=== PATIENT | female | born 1935 | race Caucasian/White ===

== ENCOUNTER 2016-05-08 12:32 | Inpatient (IN) | payer OTHER, MEDICARE ==
[~2016-05-08] VITALS: Ht 157.5 cm; Wt 59.0 kg
[~2016-05-08 12:32] MED LIST: AMLODIPINE BESYL5 M1 PO; BACTRIM 400-801 EACH PO; COZAAR25 M1 PO; DIFLUCAN150 M1 PO; DUREZOL5 ML OD; ILEVRO1.7 ML OD; LEVEMIR100 UNIT/1 SC; LOPRESSOR 25MG25 MG PO; MACROBID 100 M100 MG PO; MECLIZINE HCL25 MG PO; NOVOLOG100 UNIT/2 SC; OMEPRAZOLE20 M2 PO; PREDNISONE10 M2 PO; PREDNISONE5 M1 PO; TAMSULOSIN HCL0.4 M1 PO; VENTOLIN HFA18 GM INH; VIGAMOX3 ML
--- NOTE | 2016-05-08 12:49 | NUR ---
80 Y/O FEMALE BIBA FROM HOME FOR EVAL OF L ANKLE PAIN/SWELLING X 3-4 DAYS. PT ARRIVES ALERT AND ORIENTED X 4, SPEAKING CLEARLY WITH NO DISTRESS NOTED. PT STATES SHE HAS A PHYSICAL THERAPIST COME TO HER HOME, ALONG WITH AIDS - ON THURSDAY, WAS WORKING WITH PT ON THE STAIRS AND "BANGED MY L ANKLE ON THE DOOR". PT DENIES FALLING. DENIES OTHER INJURIES. STATES SHE HAS A BAD R KNEE WELL AND "I WAS OVERCOMPENSATING". PT STATES SHE WAS SUPPOSED TO GET A R KNEE REPLACEMENT 15 YEARS AGO - WOULD LIKE LIKE XRAY WHILE HERE TODAY. HAS BEEN AMBULATING AT HOME WITH WALKER BUT STATES PAIN BECAME "24/10 LAST NIGHT". PT HAS PILLOW/AIR SPLINT IN PLACE ON ARRIVAL. UNABLE TO VISUALIZE ANKLE PT REQUESTING TO LEAVE SPLINT ON UNDER MD REECE. DECLINES OFFER OF MEDS UNTIL EVAL WELL.
--- NOTE | 2016-05-08 12:49 | ED UPPER/LOWER EXTREMITY COMPL ---
History of Present Illness General Chief Complaint: Foot or Ankle Injury Stated Complaint: LET ANKLE PAIN Source: patient Exam Limitations: no limitations Vital Signs & Intake/Output Vital Signs & Intake/Output Vital Signs Date Time Temp Pulse Resp B/P Pulse O2 O2 Flow FiO2 Ox Delivery Rate 05/10 0917 65 112/80 18 0917 65 112/80 05/10 0916 65 112/80 05/10 0802 98.4 65 18 112/80 95 Room Air 05/09 2339 98.6 63 18 103/80 96 Room Air 05/09 1527 98.1 57 18 100/58 97 Room Air ED Intake and Output 05/10 0000 05/09 1200 Intake Total 980 840 Output Total Balance 980 840 Intake, IV 600 Intake, Oral 980 240 Allergies Coded Allergies: Penicillins (Severe, BLEEDING - UNKNOWN PT DOESNT REMEMBER 10/10/15) sulfamethoxazole (From BACTRIM) (Severe, Thrombocytopenia 10/13/15) trimethoprim (From BACTRIM) (Severe, Thrombocytopenia 10/13/15) warfarin (Severe, EXCESSIVE BLEEDING 10/10/15) aspirin (BLEED 05/02/15) Reconcile Medications Losartan Potassium (Cozaar) 25 MG TABLET 1 TAB PO DAILY BP (Reported) Meclizine HCl 25 MG TABLET 1 TAB PO DAILY DIZZINESS (Reported) Metformin HCl 1,000 MG TABLET 1 TAB PO QAM DM (Reported) Metoprolol Tartrate 25 MG TABLET 1 TAB PO DAILY BP (Reported) Tamsulosin HCl 0.4 MG CAP.ER.24H 1 CAP PO DAILY URINE (Reported) Triage Note: 80 Triage Nurses Notes Reviewed? yes HPI: Patient presents for evaluation of a severe constant left ankle pain that began abruptly on Thursday when she hit the left ankle against the side of the stairs. Since then she has noted lateral ankle swelling as well. She is unable to ambulate at this time due to the pain. She states she lives on the second floor and this really taxes her right knee which has been chronically painful (she's been told that she needs a replacement). This has led to the current injury of her left ankle and foot. Past History Travel History Traveled to [place] past 21 day No Medical History Any Pertinent Medical History? 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 No Review of Systems Review of Systems Constitutional: Reports: no symptoms. EENTM: Reports: no symptoms. Respiratory: Reports: no symptoms. Cardiovascular: Reports: no symptoms. Gastrointestinal/Abdominal: Reports: no symptoms. Genitourinary: Reports: no symptoms. Musculoskeletal: Reports: see HPI. Skin: Reports: no symptoms. Neurological/Psychological: Reports: no symptoms. Hematologic/Endocrine: Reports: no symptoms. Immunological: Reports: no symptoms. All Other Systems: Reviewed and Negative Physical Exam Physical Exam General Appearance: see below Comments: Gen.: Well-nourished, well-developed, no acute respiratory distress. Head: Normocephalic, atraumatic. Eyes: Normal inspection bilaterally Ears: Normal inspection bilaterally Nose: Normal inspection, nasal cannula in place Throat/mouth : Moist mucosa Neck: Supple, full range of motion, no goiter Heart: Regular rate and rhythm Lungs: Quiet respirations Back: Normal range of motion Extremities: Left lower extremity: Tenderness of the lateral malleolus with mild soft tissue swelling. Tenderness over the distal metacarpals. No ecchymoses noted. The left foot is neurovascularly intact. The left knee exam is normal. Neurologic: Cranial nerves grossly intact, speech is clear Skin: warm and dry Psychiatric: Calm, cooperative, no apparent delusions or hallucinations Progress Differential Diagnosis: dislocation, fracture, sprain Plan of Care: Orders Procedure Date/time Status Therapeutic Activities 05/10 UNK Complete Therapeutic Exercise 05/10 UNK Complete Anticipated Discharge 05/10 UNK Active PHYSICIAN CONSULT 05/09 UNK Active Current Medications Sig/Sonya Start time Last Medication Dose Stop Time Status Admin Senna 187 MG AT BEDTIME 05/10 2200 AC (Senokot) Bisacodyl 10 MG ONCE PRN 05/10 1030 AC (Dulcolax Supp) 05/10 2300 Magnesium Hydroxide 30 ML AT BEDTIME PRN 05/10 1030 AC (Milk Of Magnesia) Acetaminophen 650 MG Q6P PRN 05/08 1914 AC (Tylenol) Tramadol HCl 25 MG Q6-PRN PRN 05/08 1914 AC (Ultram) Diagnostic Imaging: Discussed w/RAD: Radiology Read. Radiology Impression: PATIENT: DARRIN LARSEN PRESENT AGE: 80 PATIENT ACCOUNT NO: [id number] : 34 LOCATION: [facility] ORDERING PHYSICIAN: WEI ACUNA MD SERVICE DATE: 05/08/16 EXAM TYPE: RAD - XRY-ANKLE 3 OR MORE VIEWS L; XRY-FOOT COMPLETE, LEFT EXAMINATION: LEFT ANKLE 3 VIEWS LEFT FOOT 3 VIEWS CLINICAL INFORMATION: Left ankle injury 6 days ago COMPARISON: None. TECHNIQUE: 3 views left ankle 3 views left foot FINDINGS: Left ankle: There is moderate swelling around the ankle. The ankle mortise is intact. Alignment is anatomic. No joint effusion. No fracture. Left foot: Moderate soft tissue swelling around the ankle. Degenerative changes at the first TMT and MTP joints. No fracture. IMPRESSION: No fracture. DICTATED BY: BRODY RASCON MD DATE/TIME DICTATED:05/08/161412 MAINTENANCE MAN:JACKELYN DATE/TIME TRANSCRIBED:05/08/161412 CONFIDENTIAL, DO NOT COPY WITHOUT APPROPRIATE AUTHORIZATION. <Electronically signed in Other Vendor System> SIGNED BY: BRODY RASCON MD 05/08/16 1418 Comments: 05/08/2016 2:43:40 PM I have updated Janis on her test results. We will place an ankle brace and assure patient is at baseline ambulatory status (she typically ambulates with a walker). 05/08/2016 3:09:51 PM Janis was unable to ambulate steadily, case management and PT consultations have been ordered. Departure Departure Disposition: STILL A PATIENT Condition: Stable Clinical Impression Primary Impression: Gait instability Secondary Impressions: Arthritis of ankle, left, degenerative Qualifiers: Osteoarthritis type: unspecified Qualified Code: M19.072 - Primary osteoarthritis, left ankle and foot Left ankle sprain Qualifiers: Encounter type: initial encounter Involved ligament of ankle: unspecified ligament Qualified Code: S93.402A - Sprain of unspecified ligament of left ankle, initial encounter Referrals: SAMANTHA VILLAREAL,KISHAN Coyle (PCP/Family) Departure Forms: Customer Survey General Discharge Information Admission Note Spoke With: KATALINA ELIAS MD Documentation of Exam: Documentation of any treatments & extenuating circumstances including Concerns Regarding Discharge (functional status, medication knowledge or non-compliance, living conditions, etc.) that warrant an admission rather than observation: Patient is experiencing multifactorial gait instability secondary to chronic right knee degeneration requiring prosthesis and an acute left ankle sprain. She is unable to ambulate safely at this time and would be incapable of managing her ADLs. In addition she would have great difficulty in compliance with outpatient treatment. She would be at constant risk of falling with subsequent injury. I do not feel she is a good candidate for outpatient management at this time. I feel the patient now requires hospitalization, an ankle brace and pain management and physical therapy evaluation. The ankle should be iced and elevated. Orthopedic consultation should be considered. Given this patient's advanced age and medical comorbidities, she will likely require short-term rehabilitation. At present she will require a multiple day hospitalization for evaluation and treatment as outlined above.
--- NOTE | 2016-05-08 12:50 | NUR ---
DR ACUNA INTO EVAL
--- NOTE | 2016-05-08 13:18 | NUR ---
PT AWAITING RADIOLOGY WITH NO ADDITIONAL COMLPAINTS DECLINES PAIN MEDCATION AT THIS TIME
--- NOTE | 2016-05-08 13:23 | NUR ---
TAKEN TO RADIOLOGY VIA STRETCHER
--- NOTE | 2016-05-08 13:41 | NUR ---
BACK FROM RADIOLOGY
--- NOTE | 2016-05-08 14:18 | RADIOLOGY REPORT ---
EXAMINATION: LEFT ANKLE 3 VIEWS LEFT FOOT 3 VIEWS CLINICAL INFORMATION: Left ankle injury 6 days ago COMPARISON: None. TECHNIQUE: 3 views left ankle 3 views left foot FINDINGS: Left ankle: There is moderate swelling around the ankle. The ankle mortise is intact. Alignment is anatomic. No joint effusion. No fracture. Left foot: Moderate soft tissue swelling around the ankle. Degenerative changes at the first TMT and MTP joints. No fracture. IMPRESSION: No fracture.
--- NOTE | 2016-05-08 15:04 | NUR ---
AIR SPLINT PLACED TO L ANKLE PT ATTEMPTED TO AMBULATE WITH WALKER. ABLE TO STAND WITH ASSIST OF 2. UNABLE TO BEAR OWN WEIGHT OR TAKE ANY STEPS. ASSISTED BACK INTO BED. DR ACUNA INFORMED LUNCH ORDERED, OK WITH
--- NOTE | 2016-05-08 15:10 | NUR ---
AFTER LONGER CONVERSATION WITH PT, PT STATES SHE HAS AN AIDE FROM [id number] DAILY, "WHEN THEY LEAVE THEY GET ME IN BED AND I STAY THERE UNTIL THEY COME BACK. I AM INCONTINENT AND WEAR A BRIEF". PT STATES SHE IS UNABLE TO TRANSFER BY HERSELF OR AMBULATE. DR ACUNA AND CASE MANAGEMENT INFORMED OF ALL OF THE ABOVE
[2016-05-08] MEDS ORDERED: METOPROLOL TART25 M1 PO (15:32)
[2016-05-08] MEDS ORDERED: METFORMIN HCL1000 M1 PO (15:33)
--- NOTE | 2016-05-08 15:33 | NUR ---
PT CARE ASSUMED BY THIS RN AT THIS TIME. PT RESTING ON STRETCHER AT THIS TIME. OFFERS NO COMPLAINTS AT THIS TIME DINNER TRAY DELIVERED TO PT.
--- NOTE | 2016-05-08 16:04 | NUR ---
CASE MANAGEMENT TO BEDSIDE FOR EVAL.
--- NOTE | 2016-05-08 16:30 | NUR ---
Case mgmnt TSF: I went in and introduced myself to patient. I gave her our brochure and my card. Patient was trialed for ambulation by nursing and did very poorly. Patient uses a rolling walker at home. She has trouble with her right leg, and today came in because of her left ankle. Patient has an aide at home from 830--530pm, 7 days a week and then is alone once they settle her for the night. Patient is incontinent and wears a brief at night. Per patient she has 13 steps up to her house. Patient was just discharged from [facility] with physical therapy on 05/02/16. Per patient, she could have had services until 05/23, but they discharged her. Patient was here last year and was discharged to [place]. She would be open to going back to [place] if she indeed needs physical therapy. Physical therapy consult placed for tomorrow. CM continuing to follow.
[2016-05-08 17:03] LABS: ABSOLUTE BASOPHIL COUNT 0 /CUMM (0.0-0.2); ABSOLUTE EOSINOPHIL COUNT 0.2 /CUMM (0.0-0.7); ABSOLUTE GRANULOCYTE CT 5.7 /CUMM (1.4-6.5); ABSOLUTE LYMPH COUNT 1.6 /CUMM (1.2-3.4); ABSOLUTE MONOCYTE COUNT 0.3 /CUMM (0.10-0.60); BASOPHIL % 0.2 % (0.0-2.0); EOSINOPHIL % 2.9 % (0-5); GRANULOCYTE % 72.5 % (42.2-75.2); HEMATOCRIT 31.8 % (37-47); MEAN CORPUSCULAR HGB 29.5 PG (27.0-31.0); MEAN CORPUSCULAR HGB CONC 33.5 G/DL (33.0-37.0); MEAN PLATELET VOLUME 7.2 FL (7.4-10.4); PLATELET COUNT 193 /CUMM (130-400); RBC DISTRIBUTION WIDTH 15.6 % (11.5-14.5); RED BLOOD CELL CT 3.61 /CUMM (4.20-5.40); WHITE BLOOD CELL COUNT 7.8 /CUMM (4.8-10.8)
--- NOTE | 2016-05-08 18:15 | History & Physical ---
EBONY VILLAREAL,[facility] 05/08/16 181: General Information and HPI MD Statement: I have seen and personally examined DARRIN CARTER and documented this H&P. The patient is a 80 year old F who presented with a patient stated chief complaint of left ankle pain and swelling. 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 Patient bumped her left ankle against the side rail of the stairs and since then has had swelling and pain on the lateral side of her ankle which makes it difficult to ambulate. This has been taxing on her right knee which is painful at baseline 2/2 osteoarthritis, especially since she lives on the second floor. Of note, patient has been in and out of rehabilitation for the past few months and was almost bedbound at some time, eventually regaining functionality with physical therapy. She lives at home and has helpers that take care of her from 8 :30 AM to 5:30 PM 7 days per week. Allergies/Medications Allergies: Coded Allergies: Penicillins (Severe, BLEEDING - UNKNOWN PT DOESNT REMEMBER 10/10/15) sulfamethoxazole (From BACTRIM) (Severe, Thrombocytopenia 10/13/15) trimethoprim (From BACTRIM) (Severe, Thrombocytopenia 10/13/15) warfarin (Severe, EXCESSIVE BLEEDING 10/10/15) aspirin (BLEED 05/02/15) Home Med list Losartan Potassium (Cozaar) 25 MG TABLET 1 TAB PO DAILY BP (Reported) Meclizine HCl 25 MG TABLET 1 TAB PO DAILY DIZZINESS (Reported) Metformin HCl 1,000 MG TABLET 1 TAB PO QAM DM (Reported) Metoprolol Tartrate 25 MG TABLET 1 TAB PO DAILY BP (Reported) Tamsulosin HCl 0.4 MG CAP.ER.24H 1 CAP PO DAILY URINE (Reported) Past History Travel History Traveled to [place] past 21 day No Medical History Neurological: vertigo EENT: NONE Cardiovascular: hypertension Respiratory: asthma, COPD Gastrointestinal: lower GI bleed, umbilical hernia Hepatic: NONE Renal: nephrolithiasis, KIDNEY STONE chronic right UPJ obstruction Musculoskeletal: osteoarthritis Psychiatric: NONE Blood Disorders: DVT, ITP Cancer(s): thyroid cancer 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 self Services at Home: Home Health Aide (8:30 AM-5:30 PM 7 days/week) Primary Language: Samoan Review of Systems Review of Systems Constitutional: Denies: chills, fever. EENTM: Reports: no symptoms. Cardiovascular: Reports: no symptoms. Respiratory: Reports: no symptoms. GI: Reports: no symptoms. Genitourinary: Reports: no symptoms. Musculoskeletal: Reports: no symptoms. Skin: Reports: no symptoms. Neurological/Psychological: Denies: numbness, weakness. Hematologic/Endocrine: Reports: no symptoms. Immunologic/Allergic: Reports: no symptoms. All Other Systems: Reviewed and Negative Exam & Diagnostic Data Last 24 Hrs of Vital Signs/I&O Vital Signs Date Time Temp Pulse Resp B/P Pulse O2 O2 Flow FiO2 Ox Delivery Rate 05/08 2313 98.5 61 20 112/62 96 Room Air 05/08 2127 99.0 63 18 122/59 95 Room Air 05/08 1820 97.2 66 18 102/60 98 Room Air 05/08 1625 97.0 64 16 126/79 94 Room Air 05/08 1442 97.0 66 18 124/59 96 Room Air 05/08 1338 97.0 70 18 133/59 96 Room Air 05/08 1251 95 Room Air 05/08 1236 96.7 64 16 107/72 97 Room Air Intake & Output 05/09 0800 05/09 0000 05/08 1600 Intake Total Output Total Balance Patient 58.967 kg 61.235 kg Weight Physical Exam General Appearance Alert, Oriented X3, No Acute Distress HEENT Atraumatic, PERRLA, Mucous Membr. moist/pink Neck Supple Cardiovascular Regular Rate, Normal S1, Normal S2, No Murmurs, Gallops, Rubs Lungs Clear to Auscultation Abdomen Soft, No Tenderness, Positive Bowel Sounds Neurological No Gross Focal Deficits Noted Extremities Ankle Brace In Place on Left Foot, with Edema and Tenderness to Palpation Around the Lateral Malleolus Last 24 Hrs of Labs/Jae: Laboratory Tests 05/08/164: Urine Color YEL, Urine Clarity TURBD H, Urine pH 6.0, Ur Specific [place] 1.020 , Urine Protein 30 H, Urine Ketones NEG, Urine Nitrite POS H, Urine Bilirubin NEG, Urine Urobilinogen 0.2, Ur Leukocyte Esterase LARGE H, Ur Microscopic SEDIMENT EXAMINED, Urine WBC PACKD H, Micro UA Comment MORE INFO: H, Urine Hemoglobin MOD H, Urine Glucose NEG 05/08/16 1652: Anion Gap 13, Estimated GFR 48 L, BUN/Creatinine Ratio 21.8, Glucose 99, Calcium 9.6, CBC w Diff NO MAN DIFF REQ, RBC 3.61 L, MCV 88.0, MCH 29.5, RDW 15.6 H, MPV 7.2 L, Gran % 72.5, Lymphocytes % 20.2 L, Monocytes % 4.2, Eosinophils % 2.9, Basophils % 0.2, Absolute Granulocytes 5.7, Absolute Lymphocytes 1.6, Absolute Monocytes 0.3, Absolute Eosinophils 0.2, Absolute Basophils 0, PUBS MCHC 33.5 Diagnostic Data Other Results Left Ankle XR: There is moderate swelling around the ankle. The ankle mortise is intact. Alignment is anatomic. No joint effusion. No fracture. Left Foot XR: Moderate soft tissue swelling around the ankle. Degenerative changes at the first TMT and MTP joints. No fracture. Assessment/Plan Assessment: Ms. Carter is a 80 y/o with PMHx of HTN, osteoarthritis and RLE DVT who presents with left ankle pain and swelling x 1 week following injury. #Left foot injury: Left foot and ankle XR significant for moderate soft tissue swelling but no evidence of fracture. * BLE Doppler US ordered to evaluate for DVT. * PT evaluation/therapy. * Tramadol 25 mg PO Q6H PRN for severe pain (scale 7-10) and Tylenol 650 mg PO Q6H PRN for mild pain (scale 1-3). #HTN: * Continue prior to admission metoprolol 25 mg PO daily and losartan 25 mg PO daily. 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 Currently off steroids. * Continue prior to admission metformin 1000 mg PO QAM. #Chronic UPJ obstruction: With recurrent UTIs. S/p cystoscopy and stent placement. * Continue tamsulosin 0.4 mg PO daily. #BPPV: * Continue prior to admission meclizine 25 mg PO daily. Diet: Consistent Carbohydrate 3 DVT PPx: Lovenox and ALPs CODE: FULL As Ranked By This Provider Problem List: 1. Osteoarthritis 2. HTN (hypertension) 3. Left ankle sprain Qualifiers Encounter type: initial encounter Involved ligament of ankle: unspecified ligament Qualified Code: S93.402A - Sprain of unspecified ligament of left ankle , initial encounter Core Measures/Miscellaneous Acute Coronary Syndrome ACS Diagnosis: No Cerebrovascular Accident CVA/TIA Diagnosis: No Congestive Heart Failure CHF Diagnosis: No Venous Thromboembolism VTE Risk Factors: Acute medical illness, Age > 40, Immobility, paresis, Previous VTE, Trauma major or lower ext No Mech VTE prophylaxis d/t: No contraindications No VTE Pharm Prophylaxis d/t: No contraindications VTE Diagnosis: No VTE Type: NONE VTE Confirmed by (Test): NONE Severe Sepsis Severe Sepsis Present: No Septic Shock Septic Shock Present: No Miscellaneous Documentation Attending Case Discussed With: Katalina Dee MD Primary Care Physician: Kishan Singh MD 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 Level of Patient Care: General Medicine SUSANA OSORIO 05/08/16 1907: Core Measures/Miscellaneous Miscellaneous Documentation Attending Case Discussed With: KATALINA DEE MD Primary Care Physician: KISHAN SINGH MD 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 Tesfaye, recurrent UTIs, history of RLE DVT not on any anticoagulation because of history of lower GI bleed, thrombocytopenia requiring platelet transfusion, prednisone and IVIG previously and history of thyroid cancer status post thyroidectomy, lower GI bleed due to angioectasia of descending colon and chronic anemia presented to ER with complaint of left ankle pain and swelling for last 3-4 days. According to patient she was working with physical therapy and bumped her left foot a week ago. Last night she was in so much pain and was not able to walk. Patient has an aide at home from 8:30 to 5: 30 PM 7 days a week and then she is alone and states that her for the night. She denies any fever, chills, weakness or numbness of her legs/feet. Other review of systems negative. Vitals on admission: Temperature 96.7, pulse 64, respiratory rate 16, blood pressure 107/72 and oxygen saturation 97% on room air Positive physical exam findings: Left foot swelling and tenderness around the lateral malleolus. No obvious bruising or redness. Sensations are intact. Restricted range of motion because of severe pain. Patient is wearing ankle brace. Pertinent labs: H&H 10.6/31.8, sodium 136, BUN 24, creatinine 1.1 Left foot x-ray showed moderate soft tissue swelling around ankle. Degenerative changes. No fracture Assessment and plan She is very pleasant 80-year-old woman with above-mentioned past medical history is going to be admitted on general medicine floor for left foot pain management. We will keep left foot elevated. Physical therapy evaluation and treatment. Patient might need long-term placement. We will continue all her home medications. Pain management with Tylenol and tramadol. She is full code. JIMMY RUBIO 05/09/16 0550: Attending MD Review Statement Attending Statement Attending MD Statement: examined this patient, discuss w/resident/PA/JAVA DEVELOPER ARCHITECT, agreed w/resident/PA/JAVA DEVELOPER ARCHITECT, reviewed EMR data (avail), reviewed images, amended to note Attending Assessment/Plan: CC: left ankle pain PMH: HTN, chronic UPJ obstruction with recurrent UTI, osteoarthritis, chronic right knee pain, right lower extremity DVT not on anticoagulation secondary to GI bleed. DM secondary to prednisone currently on metformin, asthma, vertigo Patient has been in and out of rehabilitation several times, recently discharged from rehabilitation on December 2015 , was almost bedbound, eventually regained functionality and started working with physical therapy , has been more active with physical therapy since last seen weeks, during this time she hurt her left ankle 15 days back, which improved then again 7 days back, pain and swelling at the left ankle gradually worsened so she came to ER for evaluation. She lives alone , with helpers coming during daytime, alone after 5 PM. With her bad right knee pain she was mostly putting pressure on the left leg and now it's insured she is unable to ambulate. Vitals: Unremarkable physical exam: A O 3,, neck supple, no JVD, no lymphadenopathy, no focal neurological deficit, mucosa moist, CVS: S1-S2, RRR. RS: Clear to auscultate bilaterally. Abdomen: Soft, NT, bowel sounds present, reducible anterior wall hernia. Deformed right knee, left ankle swollen, tender Labs: Hemoglobin 10.6, bicarbonate 20 otherwise unremarkable. UA positive for nitrites and leukocyte esterase. X-ray left foot and ankle: No fractures A and P #1 left ankle pain: No evident fracture, joint swollen, tender, no evidence of infection, no prosthesis. Probably ligamental injury, a shunt is in severe pain and unable to ambulate. Continue anti-inflammatory and pain medications as necessary, OT PT evaluation in a.m. for ambulation Patient has history of DVT in the past, has pins less ambulating with current injury, obtain DVT Doppler left lower extremity. X-ray right knee, ? Evaluation for surgery outpatient #2 continue all her home medications from morning.
--- NOTE | 2016-05-08 19:04 | NUR ---
HOUSE STAFF TO BEDSIDE FOR EVAL.
--- NOTE | 2016-05-08 19:59 | NUR ---
PT TO ROOM [id number]
--- NOTE | 2016-05-08 20:01 | NUR ---
PT TO US VIA STRETCHER AT THIS TIME.
--- NOTE | 2016-05-08 20:26 | NUR ---
REPORT GIVEN TO JUNIOR RODRIGUEZ. WILL CALL WHEN PT IS READY FOR TRANSFER.
--- NOTE | 2016-05-08 20:28 | NUR ---
PER RN BED IS NOT READY, WILL CALL WHEN CLEAN.
--- NOTE | 2016-05-08 21:31 | NUR ---
PER ELLEN FROM 2N, ROOM IS CLEAN AND READY AND PT MAY COME UP
[2016-05-08 23:13] VITALS: BP 112/62
--- NOTE | 2016-05-09 02:39 | NUR ---
NURSE NOTE: PT ARRIVED TO FLOOR AT 2155, PT IS AAOX3. COMPLAINING OF SEVERE PAIN, BUT REFUSES ALL PAIN MEDICATION. IVF STARTED NS @75. FALL PX IN PLACE, ORIENTED TO ROOM. CALL ACUNA IN REACH, BED LOWEST POSITION. CAME FROM ED VIA TRANSPORT, REPORT RECEIVED FROM NORA IN ED. AIR CAST TO PT L ANKLE. WILL CONTINOR TO MONITOR PATIENT.
[2016-05-09 06:32] VITALS: BP 110/52
--- NOTE | 2016-05-09 07:00 | PN- Housestaff ---
Subjective Follow-up For: Left ankle and foot injury Subjective: No acute events overnight. She continues to have pain in her left foot/ankle and right knee but is not interested in any pain medications as she is used to bearing the pain. Review of Systems Constitutional: Reports: see HPI. Objective Last 24 Hrs of Vital Signs/I&O Vital Signs Date Time Temp Pulse Resp B/P Pulse O2 O2 Flow FiO2 Ox Delivery Rate 05/09 1527 98.1 57 18 100/58 97 Room Air 05/09 1411 Room Air 05/09 1132 110/52 05/09 1132 110/52 05/09 1131 110/52 05/09 0632 98.6 60 18 110/52 93 Room Air 05/08 2313 98.5 61 20 112/62 96 Room Air Intake & Output 05/09 1600 05/09 0800 05/09 0000 Intake Total 500 840 315 Output Total Balance 500 840 315 Intake, IV 600 75 Intake, Oral 500 240 240 Patient 58.967 kg Weight Physical Exam General Appearance: Alert, Oriented X3, No Acute Distress HEENT: Atraumatic, Mucous Membr. moist/pink Neck: Supple Cardiovascular: Regular Rate, Normal S1, Normal S2 Lungs: Clear to Auscultation Abdomen: Soft, No Tenderness, Positive Bowel Sounds Extremities: Ankle Brace In Place on Left Foot, Left Ankle Swollen Current Medications: Current Medications Sig/Sonya Start time Last Medication Dose Route Stop Time Status Admin Acetaminophen 650 MG Q6P PRN 05/08 1914 AC PO Enoxaparin Sodium 30 MG DAILY 05/09 1000 DC 05/09 SC 1136 Losartan Potassium 25 MG DAILY 05/09 1000 AC 05/09 PO 1132 Meclizine HCl 25 MG DAILY 05/09 1000 AC 05/09 PO 1133 Metformin HCl 1,000 MG QAM 05/09 1000 CAN PO Metoprolol Tartrate 25 MG DAILY 05/09 1000 AC 05/09 PO 1131 Patient Medication 1 ED .STK-MED ONE 05/09 1400 DC Teaching ED 05/09 1401 Sodium Chloride 1,000 ML Q13H 05/08 1914 DC 05/08 IV 05/09 0814 2333 Tamsulosin HCl 0.4 MG DAILY 05/09 1000 AC 05/09 PO 1132 Tramadol HCl 25 MG Q6-PRN PRN 05/08 1914 AC PO Last 24 Hrs of Lab/Jae Results Last 24 Hrs of Labs/Mics: Laboratory Tests 05/09/16 0705: Anion Gap 9, Estimated GFR 53 L, BUN/Creatinine Ratio 24.0 Orders Radiology Findings: R KNEE XR: Tricompartmental osteoarthritis, most severely affecting the medial compartment. BLE DOPPLER US: Normal triplex scan without evidence of deep venous thrombosis involving the bilateral lower extremities. Assessment/Plan Assessment: 80 y/o with PMHx of HTN, osteoarthritis and RLE DVT who presents with left ankle pain and swelling x 1 week following injury. #Left foot injury: Left foot and ankle XR significant for moderate soft tissue swelling but no evidence of fracture. Ankle brace in place on left foot. Pain well-controlled. * Continue to work with PT. * Tramadol 25 mg PO Q6H PRN for severe pain (scale 7-10) and Tylenol 650 mg PO Q6H PRN for mild pain (scale 1-3). * Needs placement. #Right knee osteoarthritis: Right knee XR with severe osteoarthritis. * Orthopedic surgeon Dr. Gleason consulted for possible right knee injections. Recommended to give patient referral to follow up as outpatient. #History of ITP: On previous admission in September 2015. Has resolved, platelets were WNL on admission. * Discontinue Lovenox especially since BLE Doppler US with no evidence of DVT. #HTN: * Continue prior to admission metoprolol 25 mg PO daily and losartan 25 mg PO daily. 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 Currently off steroids. * Continue prior to admission metformin 1000 mg PO QAM. #Chronic UPJ obstruction: With recurrent UTIs. S/p cystoscopy and stent placement. * Continue tamsulosin 0.4 mg PO daily. #BPPV: * Continue prior to admission meclizine 25 mg PO daily. Diet: Consistent Carbohydrate 3 DVT PPx: ALPs CODE: FULL Problem List: 1. Osteoarthritis of right knee 2. Left ankle sprain 3. Sprain of left foot 4. HTN (hypertension) 5. Osteoarthritis 6. History of ITP 7. BPPV Pain Ratin Pain Location: Left ankle/foot and right knee Pain Goal: Pain 4 or less Pain Plan: Tramadol 25 mg PO Q6H PRN for severe pain (scale 7-10) Tylenol 650 mg PO Q6H PRN for mild pain (scale 1-3) Tomorrow's Labs & Rationales: N/A Discharge Plan Discharge Disposition: STR/NH Anticipated Discharge (Day): two days
--- NOTE | 2016-05-09 07:07 | ULTRASOUND REPORT ---
EXAMINATION: US TRIPLEX LOWER EXTREMITY, BILATERAL CLINICAL INFORMATION: This is an 80-year-old female with bilateral lower extremity swelling and pain. The patient is immobile. Possible deep vein thrombosis. Trauma to the ankle during physical therapy 6 days ago. Swelling and pain. COMPARISON: Comparison is made to a previous study dated 06/30/2012 which was normal. TECHNIQUE: Color-flow triplex imaging with spectral analysis and compression Doppler were performed on the bilateral lower extremities. FINDINGS: Respiratory variation, normal compression and augmented flow are noted throughout the bilateral lower extremities. The visualized common femoral vein, superficial femoral vein, profunda femoral vein, popliteal vein and midcalf peroneal and posterior tibial venous segments show no evidence of deep venous thrombosis. There is no Turk's cyst. IMPRESSION: Normal triplex scan without evidence of deep venous thrombosis involving the bilateral lower extremities.
--- NOTE | 2016-05-09 11:04 | RADIOLOGY REPORT ---
EXAMINATION: XR KNEE, RIGHT CLINICAL INFORMATION: Increasing pain in right knee. COMPARISON: None TECHNIQUE: Four views of the right knee were obtained without weightbearing. FINDINGS: Small suprapatellar joint effusion. There is osteophyte formation at the moderately degenerated patellofemoral compartment. At the medial compartment, there is severe loss of joint space with remodeling and flattening of the articular surface of the femoral condyle, subarticular sclerosis and exuberant osteophyte formation. Marginal osteophytes are present at the lateral compartment. Several clustered intra-articular ossific bodies are seen within the anterior knee deep to Hoffa's fat pad, largest in this area measuring up to 0.8 cm. No acute fractures within the degenerated knee. IMPRESSION: Tricompartmental osteoarthritis, most severely affecting the medial compartment.
--- NOTE | 2016-05-09 13:08 | PN- Att Addend ---
Attending Addendum Attending Brief Note Patient seen and examined, feeling slightly better today. Currently denies any pain but says that as well as she is not moving she does not have any pain. Vital Signs Date Time Temp Pulse Resp B/P Pulse O2 O2 Flow FiO2 Ox Delivery Rate 05/09 1132 110/52 05/09 1132 110/52 05/09 1131 110/52 05/09 0632 98.6 60 18 110/52 93 Room Air 05/08 2313 98.5 61 20 112/62 96 Room Air 05/08 2127 99.0 63 18 122/59 95 Room Air 05/08 1820 97.2 66 18 102/60 98 Room Air 05/08 1625 97.0 64 16 126/79 94 Room Air 05/08 1442 97.0 66 18 124/59 96 Room Air 05/08 1338 97.0 70 18 133/59 96 Room Air on exam aox3, nad. cv; s1,s2, rrr resp; clear abd; soft, nt, bs+ ext; left ankle/foot has a brace on. Laboratory Tests 05/09 05/08 0705 2104 Chemistry Sodium (137 - 145 mmol/L) 135 L Potassium (3.5 - 5.1 mmol/L) 4.6 Chloride (98 - 107 mmol/L) 102 Carbon Dioxide (22 - 30 mmol/L) 24 Anion Gap (5 - 16) 9 BUN (7 - 17 mg/dL) 24 H Creatinine (0.5 - 1.0 mg/dL) 1.0 Estimated GFR (>60 ml/min) 53 L BUN/Creatinine Ratio (7 - 25 %) 24.0 Urines Urine Color (YEL,AMB,STR) YEL Urine Clarity (CLEAR) TURBD H Urine pH (5.0 - 8.0) 6.0 Ur Specific [place] (1.001 - 1.035) 1.020 Urine Protein (NEG,<30 MG/DL) 30 H Urine Ketones (NEG) NEG Urine Nitrite (NEG) POS H Urine Bilirubin (NEG) NEG Urine Urobilinogen (0.1 - 1.0 EU/dl) 0.2 Ur Leukocyte Esterase (NEG) LARGE H Ur Microscopic SEDIMENT EXAMINED Urine WBC (0 - 2 /HPF) PACKD H Micro UA Comment MORE INFO: H Urine Hemoglobin (NEG) MOD H Urine Glucose (N MG/DL) NEG 05/08 1652 Chemistry Sodium (137 - 145 mmol/L) 136 L Potassium (3.5 - 5.1 mmol/L) 4.8 Chloride (98 - 107 mmol/L) 102 Carbon Dioxide (22 - 30 mmol/L) 20 L Anion Gap (5 - 16) 13 BUN (7 - 17 mg/dL) 24 H Creatinine (0.5 - 1.0 mg/dL) 1.1 H Estimated GFR (>60 ml/min) 48 L BUN/Creatinine Ratio (7 - 25 %) 21.8 Glucose (65 - 99 mg/dL) 99 Calcium (8.4 - 10.2 mg/dL) 9.6 Hematology CBC w Diff NO MAN DIFF REQ WBC (4.8 - 10.8 /CUMM) 7.8 RBC (4.20 - 5.40 /CUMM) 3.61 L Hgb (12.0 - 16.0 G/DL) 10.6 L Hct (37 - 47 %) 31.8 L MCV (81.0 - 99.0 FL) 88.0 MCH (27.0 - 31.0 PG) 29.5 RDW (11.5 - 14.5 %) 15.6 H Plt Count (130 - 400 /CUMM) 193 MPV (7.4 - 10.4 FL) 7.2 L Gran % (42.2 - 75.2 %) 72.5 Lymphocytes % (20.5 - 51.1 %) 20.2 L Monocytes % (1.7 - 9.3 %) 4.2 Eosinophils % (0 - 5 %) 2.9 Basophils % (0.0 - 2.0 %) 0.2 Absolute Granulocytes (1.4 - 6.5 /CUMM) 5.7 Absolute Lymphocytes (1.2 - 3.4 /CUMM) 1.6 Absolute Monocytes (0.10 - 0.60 /CUMM) 0.3 Absolute Eosinophils (0.0 - 0.7 /CUMM) 0.2 Absolute Basophils (0.0 - 0.2 /CUMM) 0 PUBS MCHC (33.0 - 37.0 G/DL) 33.5 lower ext doppler us: Neg for DVT. right knee xray: severe OA. 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 Imaging studies are negative for any fracture. Right knee x-ray shows severe osteoarthritis. Patient has a brace on. Please consult orthopedic. She is interested to know if she is a candidate for right knee injection. She is very concerned about the blood thinner with a history of ITP. I discontinued Lovenox especially due to the fact that lower extremity Dopplers of both lower extremities is negative for DVT. Current pain management is adequate. Patient to be seen by physical therapy. She will likely need placement. DVT Px; ALPS.
--- NOTE | 2016-05-09 13:45 | Patient Discharge Instructions ---
Discharge Instructions General Discharge Information You were seen/treated for: Left ankle pain and swelling Special Instructions: 1. Please follow-up with your primary care provider next week after discharge 2. Please follow-up with your orthopedic next week after discharge Diet Recommended Diet: Diabetic Activity Activity Limited to: Walking with Assistance Acute Coronary Syndrome Inclusion Criteria At DC or during hospital stay patient has or had the following: ACS DIAGNOSIS No Discharge Core Measures Meds if any: Prescribed or Continued at Discharge Meds if any: NOT Prescribed or Continued at Discharge Congestive Heart Failure Inclusion Criteria At DC or during hospital stay patient has or had the following: CHF DIAGNOSIS No Discharge Core Measures Meds if any: Prescribed or Continued at Discharge Meds if any: NOT Prescribed or Continued at Discharge Cerebrovascular accident Inclusion Criteria At DC or during hospital stay patient has or had the following: CVA/TIA Diagnosis No Discharge Core Measures Meds if any: Prescribed or Continued at Discharge Meds if any: NOT Prescribed or Continued at Discharge Venous thromboembolism Inclusion Criteria VTE Diagnosis No VTE Type NONE VTE Confirmed by (Test) NONE Discharge Core Measures - Per Current guidelines, there needs to be overlap - treatment for the first 5 days of Warfarin therapy. - If discharged on Warfarin prior to 5 days of - overlap therapy, the patient will need to be - assessed for post discharge needs including - *Post discharge parental anticoagulation - *Warfarin and/or parental anticoagulation education - *Follow up date to check INR post discharge At least 5 days overlap therapy as Inpatient No Meds if any: Prescribed or Continued at Discharge Note: Overlap Therapy is Warfarin and Anticoagulant Meds if any: NOT Prescribed or Continued at Discharge
--- NOTE | 2016-05-09 13:57 | Discharge Summary ---
Visit Information Visit Dates Admission Date: 05/08/16 Discharge Date: 05/11/2016 Hospital Course Course Attending Physician: KATALINA ELIAS MD Primary Care Physician: KISHAN SINGH MD Hospital Course: 80-year-old woman with past medical history of hypertension, BPPV, osteoarthritis, asthma, history of thrombocytopenia, chronic right UPJ obstruction with nonobstructing renal stone status post cystoscopy and stent placement by Dr. 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 According to patient she was working with physical therapy and bumped her left foot a week ago. Night prior to admission she was in so much pain and was not able to walk. Patient had an aide at home from 8:30 to 5:30 PM 7 days a week and then she was alone for the night. She denied any fever, chills, weakness or numbness of her legs/feet. Other review of systems was negative. Vitals on admission: Temperature 96.7, pulse 64, respiratory rate 16, blood pressure 107/72 and oxygen saturation 97% on room air Positive physical exam findings: Left foot swelling and tenderness around the lateral malleolus. No obvious bruising or redness. Sensations are intact. Restricted range of motion because of severe pain. Patient was wearing ankle brace. Pertinent labs: H&H 10.6/31.8, sodium 136, BUN 24, creatinine 1.1 Left foot x-ray showed moderate soft tissue swelling around ankle. Degenerative changes. No fracture. Doppler venous ultrasound of bilateral lower extremity did not show any evidence of DVT. Safety extremity was done that showed severe osteoarthritis. Hospital course Patient was admitted on general medicine floor as she needed assistance for ambulation and she was not a safe discharge home. All her home medications were continued. She was seen by physical therapy and they recommended STR upon discharge to increase strength/endurance and return to baseline. She remained hemodynamically stable while in hospital. Her pain was managed with Tylenol and tramadol. Complications: no Allergies: Coded Allergies: Penicillins (Severe, BLEEDING - UNKNOWN PT DOESNT REMEMBER 10/10/15) sulfamethoxazole (From BACTRIM) (Severe, Thrombocytopenia 10/13/15) trimethoprim (From BACTRIM) (Severe, Thrombocytopenia 10/13/15) warfarin (Severe, EXCESSIVE BLEEDING 10/10/15) aspirin (BLEED 05/02/15) Disposition Summary Disposition Principal Diagnosis: Left ankle sprain Additional Diagnosis: Physical deconditioning and generalized weakness Discharge Disposition: STR Discharge Instructions General Discharge Information Code Status: Full Code Patient's Diet: Diabetic diet Patient's Activity: With assistance Follow-Up Instructions/Appts: 1. Please follow-up with your primary care provider next week after discharge 2. Please follow-up with your orthopedic next week after discharge Medications at Discharge Discharge Medications: Continue taking these medications: Tamsulosin HCl (Tamsulosin HCl) 0.4 MG CAP.ER.24H 1 Capsule ORAL DAILY Days = 30 Comments: Last Taken: 05/11/16 Time: 0900 AM Losartan Potassium (Cozaar) 25 MG TABLET 1 Tablet ORAL DAILY Comments: Last Taken: 05/11/16 Time: 0900 AM Meclizine HCl (Meclizine HCl) 25 MG TABLET 1 Tablet ORAL DAILY Comments: Last Taken: 05/11/16 Time: 0900 AM Metoprolol Tartrate (Metoprolol Tartrate) 25 MG TABLET 1 Tablet ORAL DAILY Qty = 30 Comments: Last Taken: 05/11/16 Time: 0900 AM Metformin HCl (Metformin HCl) 1,000 MG TABLET 1 Tablet ORAL Every Morning Qty = 60 Comments: NOT GIVEN IN HOSPITAL Start taking the following new medications: Acetaminophen (Tylenol) 325 MG TABLET 650 Milligram ORAL EVERY SIX HOURS NEEDED as needed for PAIN SCALE 1-3 ( MILD) Qty = 30 No Refills Copies To: SAMANTHA VILLAREAL,KISHAN Coyle Attending Review Statement Documenting Attending: CATHY BELCHER MD Other Findings: The patient was seen and discussed with resident. Agree with the plan of care upon discharge. Discharging physicialn is Dr. Belcher.
[2016-05-09 15:27] VITALS: BP 100/58
[2016-05-09] MEDS ORDERED: TYLENOL325 M1 PO (15:59)
[2016-05-09 23:39] VITALS: BP 103/80
--- NOTE | 2016-05-10 07:24 | PN- Housestaff ---
See Addendum Subjective Follow-up For: Left ankle and foot injury Subjective: Patient by looks relaxed and comfortable. She reports left ankle pain however she denies the need for pain medication. Patient reported right knee pain caused by osteoarthritis, she was told that she will be given intra-articular steroid injection. Patient doesn't have any other current complaints. Review of Systems Constitutional: Reports: no symptoms. Objective Last 24 Hrs of Vital Signs/I&O Vital Signs Date Time Temp Pulse Resp B/P Pulse O2 O2 Flow FiO2 Ox Delivery Rate 05/10 1441 97.1 62 18 102/60 97 Room Air 05/10 0917 65 112/80 05/10 0917 65 112/80 05/10 0916 65 112/80 05/10 0802 98.4 65 18 112/80 95 Room Air 05/09 2339 98.6 63 18 103/80 96 Room Air Intake & Output 05/10 1600 05/10 0800 05/10 0000 Intake Total 1000 240 480 Output Total Balance 1000 240 480 Intake, Oral 1000 240 480 Physical Exam General Appearance: Alert, Oriented X3, Cooperative, No Acute Distress Skin: No Rashes HEENT: Atraumatic, PERRLA, EOMI, Mucous Membr. moist/pink Cardiovascular: Regular Rate, Normal S1, Normal S2, No Murmurs Lungs: Clear to Auscultation Abdomen: Soft, No Tenderness Neurological: Normal Speech Extremities: No Edema, decrease right knee range of motion Current Medications: Current Medications Sig/Sonya Start time Last Medication Dose Route Stop Time Status Admin Acetaminophen 650 MG Q6P PRN 05/08 1914 AC PO Bisacodyl 10 MG ONCE PRN 05/10 1030 AC ID 05/10 2300 Losartan Potassium 25 MG DAILY 05/09 1000 AC 05/10 PO 0917 Magnesium Hydroxide 30 ML AT BEDTIME PRN 05/10 1030 AC PO Meclizine HCl 25 MG DAILY 05/09 1000 AC 05/10 PO 0917 Metoprolol Tartrate 25 MG DAILY 05/09 1000 AC 05/10 PO 0916 Polyethylene Glycol 17 GM DAILY 05/10 1016 AC 05/10 PO 1305 Senna 187 MG AT BEDTIME 05/10 2200 AC PO Tamsulosin HCl 0.4 MG DAILY 05/09 1000 AC 05/10 PO 0917 Tramadol HCl 25 MG Q6-PRN PRN 03/16 1915 AC PO Assessment/Plan Assessment: 80 y/o with PMHx of HTN, osteoarthritis and RLE DVT who presents with left ankle pain and swelling x 1 week following injury. #Left foot injury: Left foot and ankle XR significant for moderate soft tissue swelling but no evidence of fracture. Ankle brace in place on left foot. Pain well-controlled. * Continue to work with PT. * Tramadol 25 mg PO Q6H PRN for severe pain (scale 7-10) and Tylenol 650 mg PO Q6H PRN for mild pain (scale 1-3). * Needs placement. #Right knee osteoarthritis: Right knee XR with severe osteoarthritis. * Orthopedic surgeon Dr. Gleason consulted for possible right knee injections. Recommended to give patient referral to follow up as outpatient. However patient has the impression that she will get the injection while still on the hospital, we contacted orthopedic surgery and they wouldn't be able to do it as an inpatient. #History of ITP: On previous admission in September 2015. Has resolved, platelets were WNL on admission. * Discontinue Lovenox especially since BLE Doppler US with no evidence of DVT. #HTN: * Continue prior to admission metoprolol 25 mg PO daily and losartan 25 mg PO daily. 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 Currently off steroids. * Continue prior to admission metformin 1000 mg PO QAM. #Chronic UPJ obstruction: With recurrent UTIs. S/p cystoscopy and stent placement. * Continue tamsulosin 0.4 mg PO daily. #BPPV: * Continue prior to admission meclizine 25 mg PO daily. Diet: Consistent Carbohydrate 3 DVT PPx: ALPs CODE: FULL Problem List: 1. Osteoarthritis 2. Sprain of left foot Pain Ratin Pain Location: Left ankle and right knee Pain Goal: Remain pain free Pain Plan: See assessment and plan Tomorrow's Labs & Rationales: See assessment and plan
[2016-05-10 08:02] VITALS: BP 112/80
--- NOTE | 2016-05-10 10:00 | NUR ---
NURSING NOTE: PATIENT STATES THAT SHE TAKE METFORMIN AT HOME, BUT NO INSULIN OR METFORMIN ORDER THIS AM. FLOOR PRESS OPERATOR 073 NOTIFIED. PATIENT'S BS IN AM 105. FLOOR PRESS OPERATOR NOTED TO NOT GIVE PATIENT INSULIN OR METFORIN BASED ON KIDNEY FUNCTION AND BS'S. WILL CONTINUE TO MONITOR BS'S.
--- NOTE | 2016-05-10 12:00 | NUR ---
NURSING NOTE: PATIENT GIVEN MIRALAX THIS AM TO HELP WITH HER BOWELS, WILL PASS ON REPORT TO WATCH OUT FOR BM. WILL CONTINUE TO MONITOR.
[2016-05-10 14:41] VITALS: BP 102/60
[2016-05-10 22:10] VITALS: BP 107/52
[2016-05-11 06:41] VITALS: BP 108/50
--- NOTE | 2016-05-11 10:06 | PN- Housestaff ---
JOEY VILLAREAL,[facility] 05/11/16 1006: Subjective Follow-up For: Left ankle and foot injury Subjective: Afebrile, laying on bed looks relaxed and comfortable, she still reported mild right knee pain, she will be following as an outpatient for intra-articular steroid injection. Patient denies any other current complaints. Patient is stable to be discharged today Review of Systems Constitutional: Reports: see HPI. Objective Last 24 Hrs of Vital Signs/I&O Vital Signs Date Time Temp Pulse Resp B/P Pulse O2 O2 Flow FiO2 Ox Delivery Rate 05/11 1502 98.4 60 20 112/60 93 Room Air 05/11 1212 98.5 60 20 108/50 05/11 0845 60 108/50 05/11 0845 60 108/50 05/11 0844 60 108/50 05/11 0641 98.5 60 20 108/50 94 Room Air 05/10 2210 98.3 64 20 107/52 94 Intake & Output 05/11 1600 05/11 0800 05/11 0000 Intake Total 350 Output Total Balance 350 Intake, Oral 350 Physical Exam General Appearance: Alert, Oriented X3, Cooperative, No Acute Distress Skin: No Rashes HEENT: Atraumatic, PERRLA, EOMI, Mucous Membr. moist/pink Cardiovascular: Regular Rate, Normal S1, Normal S2, No Murmurs Lungs: Clear to Auscultation Abdomen: Normal Bowel Sounds, Soft, No Tenderness Neurological: Normal Speech Extremities: No Cyanosis, No Edema, left leg is on splints Current Medications: Current Medications Sig/Sonya Start time Last Medication Dose Route Stop Time Status Admin Acetaminophen 650 MG Q6P PRN 05/08 1915 AC PO Bisacodyl 10 MG ONCE PRN 05/10 1030 DC SD 05/10 2300 Losartan Potassium 25 MG DAILY 05/09 1000 AC 05/11 PO 0844 Magnesium Hydroxide 30 ML AT BEDTIME PRN 05/10 1030 AC PO Meclizine HCl 25 MG DAILY 05/09 1000 AC 05/11 PO 0845 Metoprolol Tartrate 25 MG DAILY 05/09 1000 AC 05/11 PO 0845 Polyethylene Glycol 17 GM DAILY 05/10 1016 AC 05/11 PO 0845 Senna 187 MG AT BEDTIME 05/10 2200 AC 05/10 PO 2201 Tamsulosin HCl 0.4 MG DAILY 05/09 1000 AC 05/11 PO 0845 Tramadol HCl 25 MG Q6-PRN PRN 05/08 1915 AC PO Assessment/Plan Assessment: #Left foot injury: Left foot and ankle XR significant for moderate soft tissue swelling but no evidence of fracture. Ankle brace in place on left foot. Pain well-controlled. * Continue to work with PT. * Tramadol 25 mg PO Q6H PRN for severe pain (scale 7-10) and Tylenol 650 mg PO Q6H PRN for mild pain (scale 1-3). * Will be discharged today #Right knee osteoarthritis: Right knee XR with severe osteoarthritis. Orthopedic surgeon Dr. Gleason consulted for possible right knee injections. Recommended to give patient referral to follow up as outpatient. * Patient will be discharged today and instructed to follow-up as an outpatient for intra-articular steroid injection. #HTN: * Continue prior to admission metoprolol 25 mg PO daily and losartan 25 mg PO daily. 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 Currently off steroids. * Continue prior to admission metformin 1000 mg PO QAM. #Chronic UPJ obstruction: With recurrent UTIs. S/p cystoscopy and stent placement. * Continue tamsulosin 0.4 mg PO daily. #BPPV: * Continue prior to admission meclizine 25 mg PO daily. Diet: Consistent Carbohydrate 3 DVT PPx: ALPs CODE: FULL Problem List: 1. Sprain of left foot Pain Ratin (right knee) Pain Location: Right knee Pain Goal: Remain pain free Pain Plan: See assessment and plan Tomorrow's Labs & Rationales: No labs as she is at discharge CATHY HENDRICKSON MD 05/11/16 1406: Attending MD Review Statement Attending Statement Attending MD Statement: examined this patient, discuss w/resident/PA/LATHER APPRENTICE, agreed w/resident/PA/LATHER APPRENTICE, reviewed EMR data (avail), discussed with nursing, discussed with case mgmt, amended to note Attending Assessment/Plan: The patient was seen and discussed with house staff. Agree with the plan of care. OK to discharge today to [facility]. OP knee injection planned with orthopedics.
[2016-05-11 12:12] VITALS: BP 108/50
[2016-05-11 15:02] VITALS: BP 112/60
--- NOTE | 2016-05-11 19:45 | Operative Report ---
Operative/Inv Procedure Report Surgery Date: 05/11/16
== END 2016-05-11 20:10 | DRG 563 ==
LOC: ENRESERVTM → ENRESERVDT → ERH 12:32 → ENPENDDIS 17:10 → ERHI 17:10 → 2NB 17:10
PROVIDERS: Emergency Medicine; ADMIT Hospitalist
DX: S93.402A Sprain of unspecified ligament of left ankle, initial encounter (principal); E09.9 Drug or chemical induced diabetes mellitus without complications; I10 Essential (primary) hypertension; W22.8XXA Striking against or struck by other objects, initial encounter; M19.072 Primary osteoarthritis, left ankle and foot; R26.81 Unsteadiness on feet; Z79.84 Long term (current) use of oral hypoglycemic drugs; T38.0X5A Adverse effect of glucocorticoids and synthetic analogues, initial encounter; Y92.009 Unspecified place in unspecified non-institutional (private) residence as the place of occurrence of the external cause; M17.11 Unilateral primary osteoarthritis, right knee
CPT/HCPCS: 2NBSP; 36415; 73560-RT; 73610-LT; 73630-LT; 81001; 82436; 93970; 96375; 97110-GO; 97162-GP; 97530-GO; J1650

== ENCOUNTER 2017-03-27 10:21 | Inpatient (IN) | payer OTHER, MEDICARE ==
[~2017-03-27] VITALS: Ht 157.5 cm; Wt 66.7 kg
[~2017-03-27 10:21] MED LIST changes: +METFORMIN HCL1000 M1 PO; +METOPROLOL TART25 M1 PO; +TYLENOL325 M1 PO
--- NOTE | 2017-03-27 10:30 | ED DYSPNEA/ASTHMA COMPLAINT ---
History of Present Illness General Chief Complaint: Dyspnea (COPD, CHF, Other) Stated Complaint: BIBA SOB Source: patient, family, old records, EMS Exam Limitations: no limitations Vital Signs & Intake/Output Vital Signs & Intake/Output Vital Signs Date Time Temp Pulse Resp B/P B/P Pulse O2 O2 Flow FiO2 Mean Ox Delivery Rate 03/28 1027 93 Room Air 03/28 0932 98 126/50 03/28 0931 98 126/50 03/28 0931 98 126/50 03/28 0648 99.6 84 20 126/58 96 03/27 2253 Room Air Room Air 03/27 2045 98.8 95 18 132/72 97 Room Air 03/27 2045 97 Room Air 03/27 2028 100.1 94 18 102/64 95 Room Air 03/27 1628 98.6 99 20 124/89 96 Room Air 03/27 1425 98.7 101 18 121/65 95 Room Air ED Intake and Output 03/28 0000 03/27 1200 Intake Total 518 Output Total Balance 518 Intake, Oral 518 Patient 147 lb 140 lb Weight Weight Bed scale Reported by Patient Measurement Method Allergies Coded Allergies: Sulfa (Sulfonamide Antibiotics) (THROMBOCYTOPENIA 12/13/16) Penicillins (Severe, BLEEDING - UNKNOWN PT DOESNT REMEMBER 10/10/15) sulfamethoxazole (From BACTRIM) (Severe, Thrombocytopenia 10/13/15) trimethoprim (From BACTRIM) (Severe, Thrombocytopenia 10/13/15) warfarin (Severe, EXCESSIVE BLEEDING 10/10/15) aspirin (BLEED 05/02/15) Reconcile Medications Losartan Potassium (Cozaar) 25 MG TABLET 1 TAB PO DAILY BP (Reported) Meclizine HCl 25 MG TABLET 1 TAB PO DAILY DIZZINESS (Reported) Metoprolol Tartrate 25 MG TABLET 1 TAB PO DAILY BP (Reported) Tamsulosin HCl 0.4 MG CAP.ER.24H 1 CAP PO DAILY URINE (Reported) Triage Nurses Notes Reviewed? yes Onset: Abrupt Duration: day(s): (1), constant, continues in ED Timing: recent history Severity: moderate, severe HPI: 81-year-old female comes into the emergency room for further evaluation of cough shortness of breath and wheezing. Symptoms may going on since last night getting progressively worse. History of pneumonia. She lives by herself. She has a home health aide. She denies any vomiting. Some pain in her chest when she coughs. Denies any other associated symptoms. Nothing seems to make the symptoms better or worse. (Abhilash Liang) Past History Medical History Any Pertinent Medical History? 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 No (Abhilash Liang) Review of Systems Review of Systems Constitutional: Reports: see HPI. EENTM: Reports: no symptoms. Respiratory: Reports: see HPI. Cardiovascular: Reports: see HPI. GI: Reports: no symptoms. Genitourinary: Reports: no symptoms. Musculoskeletal: Reports: see HPI. Skin: Reports: no symptoms. Neurological/Psychological: Reports: no symptoms. Hematologic/Endocrine: Reports: no symptoms. Immunologic/Allergic: Reports: no symptoms. All Other Systems: Reviewed and Negative (Abhilash Liang) Physical Exam Physical Exam General Appearance: well developed/nourished, alert, awake Head: atraumatic, normal appearance Eyes: Bilateral: normal appearance. Ears, Nose, Throat: normal ENT inspection, hearing grossly normal Neck: normal inspection Respiratory: no respiratory distress, decreased breath sounds Cardiovascular: regular rate/rhythm Gastrointestinal: soft Extremities: normal inspection Neurologic/Psych: awake, alert, oriented x 3 Skin: intact, normal color Core Measures ACS in differential dx? No CVA/TIA Diagnosis No Sepsis Present: No Sepsis Focused Exam Completed? No (Abhilash Liang) Progress Differential Diagnosis: asthma, AMI, bronchitis, costochondritis, CHF, COPD, musculoskeletal pain, pericarditis, pulmonary embolism, pneumonia, pneumothorax, rib fracture, unstable angina Plan of Care: Orders Procedure Date/time Status BASIC ELECTROLYTES PLUS BUN&CR 03/29 0600 Active Heart Healthy Diet 03/28 B Active MISSING MEDICATION FORM 03/28 1034 Active CULTURE,URINE 03/28 0952 Active URINALYSIS 03/28 0952 Active BASIC ELECTROLYTES PLUS BUN&CR 03/28 0600 Complete PT Evaluate & Treat 03/28 UNK Active Lab Add-on Test 03/28 UNK Active FingerStick- Glucose 03/28 UNK Active Regular Diet 03/27 D Complete RT: Evaluation 03/27 2251 Active Skin/Pressure Ulcer Assess (Sk 03/27 2147 Active Vital Signs 03/27 2052 Active Teach/Educate 03/27 2052 Active Pain Treatment and Response 03/27 2052 Active Nutritional Intake, Monitor 03/27 2052 Active Isolation 03/27 2052 Active Intake & Output 03/27 2052 Active Patient Care Conference 03/27 2052 Active Activity/Ambulation 03/27 2052 Active Pathway - chart 03/27 182 Active House Staff 03/27 182 Active Code Status 03/27 1821 Active Intake & Output 03/27 181 Active PEAK FLOW MEASUREMENT (GEN) 03/27 1817 Complete LOWER RESPIRATORY CULTURE 03/27 181 Active Patient Data 03/27 1720 Active ED Holding Orders 03/27 1658 Active Admit to inpatient 03/27 1658 Active Vital Signs 03/27 1658 Active THYROID STIMULATING HORMONE 03/27 1116 Complete TOTAL TRIODOTHYROXINE 03/27 1116 Complete TOTAL IRON BINDING CAPACITY 03/27 1116 Complete FREE T4 03/27 1116 Complete SERUM IRON 03/27 1116 Complete BLOOD CULTURE 03/27 0700 Active TRC EVALUATION (GEN) 03/27 UNK Complete THERAPIST ORDERS 03/27 UNK Complete PEAK FLOW MEASUREMENT (GEN) 03/27 UNK Active Lab Add-on Test 03/27 UNK Active VTE Mechanical Prophylaxis 03/27 UNK Active Current Medications Sig/Sonya Start time Last Medication Dose Stop Time Status Admin Albuterol Sulfate 3 ML BID 03/28 1000 AC 03/28 (Proventil) 1003 Guaifenesin 600 MG Q12 03/28 1000 AC (Mucinex) Losartan Potassium 25 MG DAILY 03/28 1000 AC 03/28 (Cozaar) 0931 Meclizine HCl 25 MG DAILY 03/28 1000 AC 03/28 (Antivert) 0923 Metoprolol Tartrate 25 MG DAILY 03/28 1000 AC 03/28 (Lopressor) 0932 Tamsulosin HCl 0.4 MG DAILY 03/28 1000 AC 03/28 (Flomax) 0931 Methylprednisolone 40 MG Q12 03/28 0200 AC 03/28 (Solumedrol) 0923 Albuterol Sulfate 3 ML Q6 PRN 03/27 220 AC (Proventil) Heparin Sodium 5,000 UNIT Q8 03/27 2200 AC (Porcine) Sodium Chloride 1,000 ML Q13H 03/27 220 AC 03/27 (Normal Saline 0.9%) 2309 Laboratory Tests 03/28/17 0700: Anion Gap 13, Estimated GFR 36 L, BUN/Creatinine Ratio 10.7 03/28/17 0500: Sodium Cancelled, Potassium Cancelled, Chloride Cancelled, Carbon Dioxide Cancelled, Anion Gap Cancelled, BUN Cancelled, Creatinine Cancelled, BUN/ Creatinine Ratio Cancelled 03/27/17 1625: Urine Color YEL, Urine Clarity CLDY H, Urine pH 6.0, Ur Specific [place] 1.025, Urine Protein 100 H, Urine Ketones NEG, Urine Nitrite POS H, Urine Bilirubin NEG, Urine Urobilinogen 0.2, Ur Leukocyte Esterase LARGE H, Ur Microscopic SEDIMENT EXAMINED, Urine WBC PACKD H, Ur Epithelial Cells MANY H, Micro UA Comment MORE INFO: H, Urine Hemoglobin MOD H, Urine Glucose NEG Microbiology 03/28 0952 URINE ROUT: Urine Culture - COLB 03/28 0700 BLOOD: Blood Culture - CAN Cancelled: NO SECOND SET COLLECTED FOR MICRO DEPT 03/28 0600 LOWER RESP: Respiratory Culture - COLB 03/28 0600 LOWER RESP: Gram Stain - COLB 03/27 1300 NASOPHARYN: Influenza Virus A & B Rapid Smear - COMP Diagnostic Imaging: Viewed by Me: Radiology Read. Discussed w/RAD: Radiology Read. Radiology Impression: PATIENT: DARRIN LARSEN PRESENT AGE: 81 PATIENT ACCOUNT NO: [id number] : 34 LOCATION: [facility] ([place] ORDERING PHYSICIAN: Abhilash KHAN SERVICE DATE: 03/27/17 EXAM TYPE : RAD - XRY-PORTABLE CHEST XRAY EXAMINATION: XR PORTABLE CHEST CLINICAL INFORMATION: Shortness of breath. Cough. COMPARISON: Chest radiograph 2015. TECHNIQUE: Portable frontal view of the chest was obtained. FINDINGS: Lungs are clear and well expanded. No focal consolidative disease, pleural effusion, or pneumothorax. The cardiac silhouette and upper mediastinal contours are normal. No acute osseous finding. IMPRESSION: Unremarkable chest radiograph. No consolidative disease or effusion. DICTATED BY: Eliud Han MD DATE/ TIME DICTATED:03/27/171124 TETRYL SCREEN OPERATOR:JACKELYN DATE/TIME TRANSCRIBED: 03/27/171124 CONFIDENTIAL, DO NOT COPY WITHOUT APPROPRIATE AUTHORIZATION. < Electronically signed in Other Vendor System> SIGNED BY: Eliud Han MD 03/27/17 1130 Initial ED EKG: normal sinus rhythm, rate (98) (Abhilash Liang) Departure Departure Disposition: STILL A PATIENT Condition: Stable Clinical Impression Primary Impression: Bronchitis Secondary Impressions: Flu-like symptoms, Gait instability Referrals: Reinaldo Blake MD (PCP/Family) Departure Forms: Customer Survey General Discharge Information Admission Note Spoke With: Estefania Nevarez MD Documentation of Exam: Documentation of any treatments & extenuating circumstances including Concerns Regarding Discharge (functional status, medication knowledge or non-compliance, living conditions, etc.) that warrant an admission rather than observation: Patient will require supplemental oxygen. Physical therapy consultation. Case management consultation. Breathing treatment. She is unsteady on her feet and almost falls over when ambulating with walker. This is below her normal baseline of function. Medically not safe for discharge. (Abhilash Liang) PA/SCHOOL TEACHER Co-Sign Statement Statement: ED Attending supervision documentation- [X] I saw and evaluated the patient. I have also reviewed all the pertinent lab results and diagnostic results. I agree with the findings and the plan of care as documented in the PA's/SCHOOL TEACHER's documentation. [X] I have reviewed the ED Record and agree with the PA's/SCHOOL TEACHER's documentation. [] Additions or exceptions (if any) to the PAs/SCHOOL TEACHER's note and plan are summarized below: [] (Deshawn VILLAREAL,Silvana) Critical Care Note Critical Care Note Critical Care Time: non-applicable (Abhilash Liang)
[2017-03-27 11:23] LABS: ABSOLUTE BASOPHIL COUNT 0.1 /CUMM (0.0-0.2); ABSOLUTE EOSINOPHIL COUNT 0 /CUMM (0.0-0.7); ABSOLUTE GRANULOCYTE CT 5.8 /CUMM (1.4-6.5); ABSOLUTE LYMPH COUNT 0.5 /CUMM (1.2-3.4); ABSOLUTE MONOCYTE COUNT 0.4 /CUMM (0.10-0.60); BASOPHIL % 1.4 % (0.0-2.0); EOSINOPHIL % 0.7 % (0-5); GRANULOCYTE % 85.4 % (42.2-75.2); HEMATOCRIT 28.3 % (37-47); MEAN CORPUSCULAR HGB 28.2 PG (27.0-31.0); MEAN CORPUSCULAR HGB CONC 33.3 G/DL (33.0-37.0); MEAN CORPUSCULAR VOLUME 84.7 FL (81.0-99.0); PLATELET COUNT 471 /CUMM (130-400); RBC DISTRIBUTION WIDTH 15.1 % (11.5-14.5); RED BLOOD CELL CT 3.34 /CUMM (4.20-5.40); WHITE BLOOD CELL COUNT 6.8 /CUMM (4.8-10.8)
--- NOTE | 2017-03-27 11:30 | RADIOLOGY REPORT ---
EXAMINATION: XR PORTABLE CHEST CLINICAL INFORMATION: Shortness of breath. Cough. COMPARISON: Chest radiograph 10/17/2015. TECHNIQUE: Portable frontal view of the chest was obtained. FINDINGS: Lungs are clear and well expanded. No focal consolidative disease, pleural effusion, or pneumothorax. The cardiac silhouette and upper mediastinal contours are normal. No acute osseous finding. IMPRESSION: Unremarkable chest radiograph. No consolidative disease or effusion.
--- NOTE | 2017-03-27 17:23 | History & Physical ---
Demetrius Odell MD 03/27/17 5495: General Information and [facility] MD Statement: I have seen and personally examined DARRIN LARSEN and documented this H&P. The patient is a 81 year old F who presented with a patient stated chief complaint of dyspnea. Source of Information: patient, old records Exam Limitations: no limitations History of Present Illness: 81 year old female with past medical history significant for HTN, BPPV, asthma, ITP treated with platelet transfusion, prednisone, and IVIG, recurrent urinary tract infections (h/o ESBL UTI) with chronic right UPJ obstruction and nephrolithiasis with ureteral stent placement and cystoscopy by Dr. Tesfaye, history of RLE DVT no anticoagulation (lower GI bleed-angioectasia, chronic anemia, history of thyroid cancer s/p thyroidectomy, diastolic heart failure with severe pulmonary hypertension, and steroid-induced diabetes presents with complaints of dyspnea. The patient states her symptoms started suddenly yesterday approximately 3PM when she all of a sudden noticed that she had coughing and wheezing. She had subjective fevers and chills, saying that she soaked the pillow case overnight. Her home health aides weren't home so her temperature at home was never. Her cough is non productive. She does complain of some sharp frontal chest pain that is pleuritic in nature and exacerbated by coughing. She states that she noticed some sore throat and congestion that has migrated into her chest preceding her present condition but denies any sick contacts, sinus pain, headaches, ear pain, or rhinorrhea. On review of systems, she endorses chronic fatigue, recent weight loss estimated ~20lbs in six months, decreased strength and mobility, severe osteoarthritis pain (primarily right knee and left ankle), and recent viral gastroenteritis with symptoms of diarrhea greater than nausea/ vomiting approximately two weeks ago. In the ED, her urinalysis was suggestive of infection. Chest x-ray and influenza testing were negative for evidence of pulmonary infection. The patient received nebulized albuterol and ipratropium treatments with respiratory therapy. Labs were notable for no leukocytosis, anemia, mild hyperglycemia, and acute kidney injury. Allergies/Medications Allergies: Coded Allergies: Sulfa (Sulfonamide Antibiotics) (THROMBOCYTOPENIA 12/13/16) Penicillins (Severe, BLEEDING - UNKNOWN PT DOESNT REMEMBER 10/10/15) sulfamethoxazole (From BACTRIM) (Severe, Thrombocytopenia 10/13/15) trimethoprim (From BACTRIM) (Severe, Thrombocytopenia 10/13/15) warfarin (Severe, EXCESSIVE BLEEDING 10/10/15) aspirin (BLEED 05/02/15) Home Med list Losartan Potassium (Cozaar) 25 MG TABLET 1 TAB PO DAILY BP (Reported) Meclizine HCl 25 MG TABLET 1 TAB PO DAILY DIZZINESS (Reported) Metoprolol Tartrate 25 MG TABLET 1 TAB PO DAILY BP (Reported) Tamsulosin HCl 0.4 MG CAP.ER.24H 1 CAP PO DAILY URINE (Reported) Compliance With Home Meds: GOOD Past History Travel History Traveled to [place] past 21 day No Medical History Neurological: vertigo EENT: NONE Cardiovascular: hypertension Respiratory: asthma, COPD Gastrointestinal: lower GI bleed, umbilical hernia Hepatic: NONE Renal: nephrolithiasis, KIDNEY STONE chronic right UPJ obstruction Musculoskeletal: osteoarthritis Psychiatric: NONE Blood Disorders: DVT, ITP Cancer(s): thyroid cancer BEATER OPERATOR/Reproductive: NONE History of MRSA: No History of VRE: No History of CDIFF: No Surgical History Surgical History: appendectomy, cholecystectomy, thyroid surgery status post right foot surgery Past Family/Social History Family History Relations & Conditions if any Relation not specified for: FH: diabetes mellitus Renal cancer Psychosocial History Who Do You Live With? self Services at Home: Home Health Aide (8:30 AM-5:30 PM 7 days/week) Primary Language: Burmese ETOH Use: denies use Illicit Drug Use: denies illicit drug use Review of Systems Review of Systems Constitutional: Reports: chills, diaphoresis, fever, unexplained weight loss. Cardiovascular: Denies: chest pain, peripheral edema. Respiratory: Reports: cough, short of breath, wheezing. GI: Denies: abdominal pain, diarrhea, nausea, vomiting. Genitourinary: Denies: dysuria, frequency. Exam & Diagnostic Data Last 24 Hrs of Vital Signs/I&O Vital Signs Date Time Temp Pulse Resp B/P B/P Pulse O2 O2 Flow FiO2 Mean Ox Delivery Rate 03/27 2253 Room Air Room Air 03/27 2044 98.8 95 18 132/72 97 Room Air 03/27 2044 97 Room Air 03/27 2027 100.1 94 18 102/64 95 Room Air 03/27 1628 98.6 99 20 124/89 96 Room Air 03/27 1425 98.7 101 18 121/65 95 Room Air 03/27 1105 96 03/27 1024 99.8 100 18 142/90 98 Room Air Intake & Output 03/28 0800 03/28 0000 03/27 1600 Intake Total 518 Output Total Balance 518 Intake, Oral 518 Patient 66.678 kg 63.503 kg Weight Weight Bed scale Reported by Patient Measurement Method Physical Exam General Appearance Alert, Oriented X3, Cooperative, No Acute Distress Cardiovascular Regular Rate, Normal S1, Normal S2, No Murmurs Lungs diminished air entry but no audible wheezes or crackles Abdomen Normal Bowel Sounds, Soft, No Tenderness, No Masses Extremities No Clubbing, No Cyanosis, No Edema, No Tenderness/Swelling Last 24 Hrs of Labs/Jae: Laboratory Tests 03/27/17 1625: Urine Color YEL, Urine Clarity CLDY H, Urine pH 6.0, Ur Specific [place] 1.025, Urine Protein 100 H, Urine Ketones NEG, Urine Nitrite POS H, Urine Bilirubin NEG, Urine Urobilinogen 0.2, Ur Leukocyte Esterase LARGE H, Ur Microscopic SEDIMENT EXAMINED, Urine WBC PACKD H, Ur Epithelial Cells MANY H, Micro UA Comment MORE INFO: H, Urine Hemoglobin MOD H, Urine Glucose NEG 03/27/17 1116: Anion Gap 16, Estimated GFR 36 L, BUN/Creatinine Ratio 10.7, Glucose 128 H, Calcium 9.0, Iron 35 L, TIBC 240 L, Total Bilirubin 0.6, AST 19, ALT 20, Alkaline Phosphatase 78, Troponin I < 0.01, Total Protein 7.6, Albumin 3.8, Globulin 3.8, Albumin/Globulin Ratio 1.0 L, TSH 2.950, Free T4 1.71, Total T3 1.15, CBC w Diff NO MAN DIFF REQ, RBC 3.34 L, MCV 84.7, MCH 28.2, MCHC 33.3, RDW 15.1 H, MPV 6.0 L, Gran % 85.4 H, Lymphocytes % 7.1 L, Monocytes % 5.4, Eosinophils % 0.7, Basophils % 1.4, Absolute Granulocytes 5.8, Absolute Lymphocytes 0.5 L, Absolute Monocytes 0.4, Absolute Eosinophils 0, Absolute Basophils 0.1 Microbiology 03/27 1300 NASOPHARYN: Influenza Virus A & B Rapid Smear - COMP 03/27 1116 BLOOD: Blood Culture - RECD Diagnostic Data EKG Results sinus rhythm, incomplete rbbb, lad CXR Results Lungs are clear and well expanded. No focal consolidative disease, pleural effusion, or pneumothorax. The cardiac silhouette and upper mediastinal contours are normal. No acute osseous finding. Assessment/Plan Assessment: 81 year old female with past medical history significant for HTN, BPPV, asthma, ITP treated with platelet transfusion, prednisone, and IVIG, recurrent urinary tract infections (h/o ESBL UTI) with chronic right UPJ obstruction and nephrolithiasis with ureteral stent placement and cystoscopy by Dr. Tesfaye, history of RLE DVT no anticoagulation (lower GI bleed-angioectasia, chronic anemia, history of thyroid cancer s/p thyroidectomy, diastolic heart failure with severe pulmonary hypertension, and steroid-induced diabetes presents with complaints of acute dyspnea. Dyspnea Asthma exacerbation secondary to bronchitis viral vs bacterial check sputum culture no infiltrate on cxr, tmax 100.1, no leukocytosis, negative influenza no need for legionella/strep pneumo urinary antigens pred 40mg x 5 days accuchecks tidac/hs while on steroids h/o steroid induced dm albuterol/ nebs trc evaluation h/o pulm htn mod tr troponin negative STEFANO NS @ 75cc/hr x 1 bag Consider renal ultrasound for upj obstruction hydronephrosis follow up urine culture continue tamsulosin repeat bep in am asymptomatic bacteriuria h/o esbl ua cloudy pos nitrite, large LE, packed wbc monitor off antibiotics f/o urine culture chronic anemia: check iron studies normocytic htn: continue metoprolol losartan bppv: continue meclizine heart healthy diet dvt ppx-heparin 5000 units subcutaneous q8h Full code As Ranked By This Provider Problem List: 1. BPPV 2. Asthma 3. Benign essential hypertension 4. R NEPHROLITHIASIS 5. Drug-induced ITP Core Measures/Misc (11/09) Acute Coronary Syndrome ACS Diagnosis: No Congestive Heart Failure Congestive Heart Failure Diagnosis No Cerebrovascular Accident CVA/TIA Diagnosis: No VTE (View Protocol) VTE Risk Factors No risk factors No Mechanical VTE Prophylaxis d/t N/A MechProphylax Ordered No VTE Pharm Prophylaxis d/t NA PharmProphylax ordered Sepsis (View protocol) Sepsis Present: No Leonel VILLAREAL,Isly 03/28/17 0011: Resident Review Statement Resident Statement: examined this patient, discussed with planning intern, agreed with planning intern Other Findings: 81-year-old female with extensive PMH includes but not limited to asthma and pulmonary hypertension, who presented to the ED complaining of nonproductive cough, dyspnea and wheezing that started yesterday around noontime. Her symptom was associated with sore throat and nonradiating pleuritic chest pain that gets worse with cough. Patient also noticed fever and chills. She denies recent travel, sick contacts, headache, dizziness, rhinorrhea or ear pain. She reported chronic fatigue and a recent 20 pound weight loss over the past few months. Past medical history: Asthma, pulmonary hypertension 2/2 diastolic heart failure , hypertension, recurrent UTI secondary to UPJ obstruction and nephrolithiasis, RLE DVT, thyroid cancer status post thyroidectomy, hypertension,BPPV. Assessment and plan: The patient has nonproductive cough, sore throat, dyspnea associated with wheezing. No x-ray findings suggestive of infection, without leukocytosis but with a mild fever up to 100. The patient has a history of asthma that's been controlled without any medications. Her rapid flu was negative. Initial peak flow measurement was 150. Her wheezing improved after nebulizers. #Dyspnea likely asthma exacerbation secondary to viral bronchitis * peak flow every shift * Albuterol nebulizer [id number]/TRC * IV Solu-Medrol 40 mg, with glucose fingerstick * We will hold antibiotic * We will send for sputum culture #STEFANO most likely prerenal * IV normal saline at a rate 75 mL per hour * We will send for urine culture * We will continue tamsulosin for chronic UPJ obstruction * We will hold antibiotic for asymptomatic bacteriuria #Chronic anemia with mild thrombocytosis * We will send for full iron study #Hypertension * We will continue losartan * We will continue metoprolol #Benign paroxysmal positional dyspnea * We will continue meclizine Heart healthy diet DVT prophylaxis with heparin subcutaneous Full code Mckayla Bonilla 03/28/17 0624: Attending MD Review Statement Attending Statement Attending MD Statement: examined this patient, discuss w/resident/PA/ZIGZAG MACHINE OPERATOR, agreed w/resident/PA/ZIGZAG MACHINE OPERATOR, reviewed EMR data (avail), reviewed images, amended to note Attending Assessment/Plan: Cc: Cough and wheezing PMH: HTN, chronic UPJ obstruction, osteoarthritis with chronic right knee pain and left ankle pain, history of right DVT, history of ITP, asthma, vertigo/BPPV Patient came to ER for worsening cough, shortness of breath and wheezing. Patient states that she developed upper respiratory symptoms few days back which progressively worsened causing her chest congestion and she is getting persistent cough without any sputum production, last evening she was having severe wheezing so she came to ER. She endorses fever and chills at home with drenching sweats. Because she cannot get up on assisted from bed she could not measure her temperature. She has a nursing tech during the daytime who help in her ambulation and cooking and ADLs. Patient states that she has been diagnosed to have asthma but currently not on any inhalation treatment. Her asthma episodes are not very frequent and only gets exacerbated when she has any infection. Last such infection was 4-year-old back. Denies any urinary frequency , burning or irritation, pleuritic chest pain, presyncopal episodes otherwise ROS unremarkable. She recently completed a course of antibiotic for UTI 2 weeks back. Vitals: Afebrile, pulse 100, RR 18, blood pressure 142/90, saturating 98% on room air On exam: A O 3, cooperative, mild respiratory distress, continuous nonprotective cough, neck supple, JVD normal, no lymphadenopathy, mucosa dry, no focal neurological deficit, no dependent edema, no obvious skin rashes or inflammation CVS: S1-S2, RRR. RS: Significantly decreased air entry. Abdomen: Soft, abdominal hernia, reducible, NT, ND, bowel sounds present. Labs: WBC 6.8, hemoglobin 9.4, hematocrit 28.3, platelets 471, neutrophils 85%, sodium 135, potassium 4.6, chloride 98, bicarbonate 21, BUN 15, creatinine 1.4, glucose 128, calcium 9.0, LFT unremarkable, troponin less than 0.01 UA positive for nitrites, leukocyte esterase CXR: Unremarkable chest radiograph. No consolidative disease or effusion. Assessment and plan 81-year-old female with multiple comorbidities presented to ER for worsening of shortness of breath, nonproductive severe cough. Patient was significantly wheezing on arrival in the ER, was treated with nebulization treatment. Her symptoms started with URI, followed by chest congestion and now nonproductive cough. She denies any pleuritic chest pain, chest tightness but endorses fever and chills at home but could not measure her temperature. She has history of asthma currently not under treatment with any nebulization or indications, states that she gets asthma only after respiratory infections. On auscultation there is markedly decreased air entry, probably secondary to bronchospasm, patient persistently coughing, no JVD or crackles, no leg edema. She appears to have asthmatic bronchitis, likely cough variant asthma exacerbated with URI. Even the urine positive for leukocyte esterase and nitrites patient does not have any urinary symptoms currently. She was treated with antibiotics for UTI 2 weeks back. Creatinine appears chronically elevated + Asthma exacerbation/bronchitis secondary to URI + History of HTN, chronic UPJ obstruction, osteoarthritis with chronic right knee pain and left ankle pain, history of right DVT, history of ITP, asthma, vertigo/BPPV - Admit to general medicine - IV methylprednisolone 40 mg every 12 hours - Watch off antibiotics, if fever spike may need to cover empirically with azithromycin - TRC nebulization with albuterol and ipratropium scheduled and when necessary - Mucinex scheduled twice a day - UA sample does not appear in good, probably contamination, if patient has fever spike yesterday to repeat UA and USG abdomen or CT scan to further evaluated urinary infection. - Continue gentle hydration - Obtain iron studies were significant anemia - Continue rest of the home medications - Adequate pain control - DVT prophylaxis
[2017-03-27 20:45] VITALS: BP 132/72
--- NOTE | 2017-03-28 06:26 | Admission Certification ---
Admission Certification Certification Statement - As attending physician, I certify that at the time of - admission, based on clinical presentation, severity of - symptoms, need for further diagnostic testing and - therapeutic interventions, and risk of adverse outcomes - without in-hospital treatment, in my clinical assessment, - this patient requires an acute hospital stay for a minimum - of two nights or longer. I have also considered psychsocial - factors such as support system, advanced age, financial - issues, cognitive issues, and failed out-patient treatments, - past re-admission history, safety of patient, and lack of - compliance as applicable. Specific rationale supporting this admission is: Bronchitis/cough variant asthma exacerbation secondary to URI
[2017-03-28 06:48] VITALS: BP 126/58
--- NOTE | 2017-03-28 08:57 | PN- Housestaff ---
Csas VILLAREAL,Demetrius 03/28/17 0857: Subjective Follow-up For: asthma exacerbation acute kidney injury Subjective: no complaints, breathing better, concerned about side effects of blood thinners and steroids Review of Systems Constitutional: Reports: see HPI. Objective Last 24 Hrs of Vital Signs/I&O Vital Signs Date Time Temp Pulse Resp B/P B/P Pulse O2 O2 Flow FiO2 Mean Ox Delivery Rate 03/28 0932 98 126/50 03/28 0931 98 126/50 03/28 0931 98 126/50 03/28 0648 99.6 84 20 126/58 96 03/27 2253 Room Air Room Air 03/27 2045 98.8 95 18 132/72 97 Room Air 03/27 2045 97 Room Air 03/27 2028 100.1 94 18 102/64 95 Room Air 03/27 1628 98.6 99 20 124/89 96 Room Air 03/27 1425 98.7 101 18 121/65 95 Room Air 03/27 1105 96 03/27 1024 99.8 100 18 142/90 98 Room Air Intake & Output 03/28 1600 03/28 0800 03/28 0000 Intake Total 600 518 Output Total Balance 600 518 Intake, IV 600 Intake, Oral 518 Number 0 Bowel Movements Patient 66.678 kg Weight Weight Bed scale Measurement Method Physical Exam General Appearance: Alert, Oriented X3, Cooperative, No Acute Distress Cardiovascular: Regular Rate, Normal S1, Normal S2, No Murmurs Lungs: scattered expiratory wheezing Abdomen: Normal Bowel Sounds, Soft, No Tenderness, No Masses Extremities: No Clubbing, No Cyanosis, No Edema, Normal Pulses Current Medications: Current Medications Sig/Sonya Start time Last Medication Dose Route Stop Time Status Admin Albuterol Sulfate 3 ML BID 03/28 1000 AC INH Albuterol Sulfate 3 ML Q6 PRN 03/27 2200 AC INH Albuterol Sulfate 3 ML ONCE ONE 03/27 1045 DC 03/27 INH 03/27 1046 1104 Heparin Sodium 5,000 UNIT Q8 03/27 2200 AC (Porcine) SC Ipratropium [place] 2.5 ML ONCE ONE 03/27 1045 DC 03/27 INH 03/27 1046 1104 Losartan Potassium 25 MG DAILY 03/28 1000 AC 03/28 PO 0931 Meclizine HCl 25 MG DAILY 03/28 1000 AC 03/28 PO 0923 Methylprednisolone 40 MG Q12 03/28 0200 AC 03/28 IV 0923 Metoprolol Tartrate 25 MG DAILY 03/28 1000 AC 03/28 PO 0932 Prednisone 40 MG DAILY 03/27 2359 DC PO 03/31 1001 Sodium Chloride 1,000 ML Q13H 03/27 2200 AC 03/27 IV 2309 Tamsulosin HCl 0.4 MG DAILY 03/28 1000 AC 03/28 PO 0931 Last 24 Hrs of Lab/Jae Results Last 24 Hrs of Labs/Mics: Laboratory Tests 03/28/17 0700: Anion Gap 13, Estimated GFR 36 L, BUN/Creatinine Ratio 10.7 03/28/17 0500: Sodium Cancelled, Potassium Cancelled, Chloride Cancelled, Carbon Dioxide Cancelled, Anion Gap Cancelled, BUN Cancelled, Creatinine Cancelled, BUN/ Creatinine Ratio Cancelled 03/27/17 1625: Urine Color YEL, Urine Clarity CLDY H, Urine pH 6.0, Ur Specific [place] 1.025, Urine Protein 100 H, Urine Ketones NEG, Urine Nitrite POS H, Urine Bilirubin NEG, Urine Urobilinogen 0.2, Ur Leukocyte Esterase LARGE H, Ur Microscopic SEDIMENT EXAMINED, Urine WBC PACKD H, Ur Epithelial Cells MANY H, Micro UA Comment MORE INFO: H, Urine Hemoglobin MOD H, Urine Glucose NEG 03/27/17 1116: Anion Gap 16, Estimated GFR 36 L, BUN/Creatinine Ratio 10.7, Glucose 128 H, Calcium 9.0, Iron 35 L, TIBC 240 L, Total Bilirubin 0.6, AST 19, ALT 20, Alkaline Phosphatase 78, Troponin I < 0.01, Total Protein 7.6, Albumin 3.8, Globulin 3.8, Albumin/Globulin Ratio 1.0 L, TSH 2.950, Free T4 1.71, Total T3 1.15, CBC w Diff NO MAN DIFF REQ, RBC 3.34 L, MCV 84.7, MCH 28.2, MCHC 33.3, RDW 15.1 H, MPV 6.0 L, Gran % 85.4 H, Lymphocytes % 7.1 L, Monocytes % 5.4, Eosinophils % 0.7, Basophils % 1.4, Absolute Granulocytes 5.8, Absolute Lymphocytes 0.5 L, Absolute Monocytes 0.4, Absolute Eosinophils 0, Absolute Basophils 0.1 Microbiology 03/28 0700 BLOOD: Blood Culture - CAN Cancelled: NO SECOND SET COLLECTED FOR MICRO DEPT 03/28 0600 LOWER RESP: Respiratory Culture - COLB 03/28 0600 LOWER RESP: Gram Stain - COLB 03/27 1300 NASOPHARYN: Influenza Virus A & B Rapid Smear - COMP 03/27 1116 BLOOD: Blood Culture - WKST Assessment/Plan Assessment: 81 year old female with past medical history significant for HTN, BPPV, asthma, ITP treated with platelet transfusion, prednisone, and IVIG, recurrent urinary tract infections (h/o ESBL UTI) with chronic right UPJ obstruction and nephrolithiasis with ureteral stent placement and cystoscopy by Dr. Tesfaye, history of RLE DVT no anticoagulation (lower GI bleed-angioectasia, chronic anemia, history of thyroid cancer s/p thyroidectomy, diastolic heart failure with severe pulmonary hypertension, and steroid-induced diabetes presents with complaints of acute dyspnea. Dyspnea: Asthma exacerbation secondary to bronchitis viral vs bacterial Follow up sputum culture No consolidative disease or effusion on chest x-ray Influenza negative Tmax 100.1, no leukocytosis, no supplemental oxygen requirement IV solumedrol 40mg Q12h, taper to PO prednisone over the weekend Accuchecks tidac while on steroids for h/o steroid induced dm TRC evaluation Albuterol nebulizer treatments prn Measure peak flow with respiratory therapy and monitor trend with treatment Cardiogenic causes troponin negative for ischemia, h/o pulmonary HTN and moderate TR STEFANO: Possible prenal with history of poor intake,renal function wnl ~6 months ago 1L NS then repeat BEP, if no improvement Encourage additional PO intake Consider renal ultrasound for upj obstruction causes of STEFANO and hydronephrosis Follow up urine culture Continue tamsulosin Asymptomatic bacteriuria: h/o esbl On isolation Urinalysis was cloudy with positive nitrite, large leukocyteesterase, and packed WBCs Continue to monitor off antibiotics No urine culture in [facility] repeat UA and UC Chronic anemia: normocytic Check iron studies Hypertension: Continue metoprolol and losartan BPPV: Continue meclizine PT evaluation Heart healthy diet DVT ppx-heparin 5000 units subcutaneous q8h Full code Problem List: 1. Asthma 2. BPPV 3. Benign essential hypertension 4. THROMBOCTOPENIA 5. STEFANO (acute kidney injury) 6. Bronchitis Pain Ratin Pain Location: n/a Pain Goal: Pain 4 or less Pain Plan: prn Tomorrow's Labs & Rationales: cbc, bep Arole MD,Alessandro 03/28/17 1507: Attending MD Review Statement Attending Statement Attending MD Statement: examined this patient, discuss w/resident/PA/VERTICAL MILL OPERATOR, agreed w/resident/PA/VERTICAL MILL OPERATOR, reviewed EMR data (avail), discussed with nursing, discussed with case mgmt, amended to note Attending Assessment/Plan: Patient seen and examined. Resting comfortably not in any acute distress. She reports feeling better compared to presentation. On examination she has fair entry bilaterally with mild expiratory rhonchi. She has no jugular venous distention. She has no peripheral edema.Continue bronchodilator therapy and systemic steroid therapy. If she continues to improve tomorrow her Solu-Medrol dose can be weaned down. Discontinue IV fluids and encourage oral hydration.
[2017-03-28 14:26] VITALS: BP 102/53
[2017-03-28 22:51] VITALS: BP 114/50
[2017-03-29 06:52] VITALS: BP 124/54
--- NOTE | 2017-03-29 10:03 | PN- Housestaff ---
[facility] 1003: Subjective Follow-up For: Asthma exacerbation Acute kidney injury Subjective: No overnight events. Patient remained afebrile overnight. Seen and examined this morning. Patient denied any chest pain, nausea, vomiting, chills, fever, abdominal pain dysuria. She reported exertional dyspnea and dizziness. Review of Systems Constitutional: Reports: no symptoms. EENTM: Reports: see HPI. Cardiovascular: Reports: no symptoms. Respiratory: Reports: short of breath. Genitourinary: Reports: no symptoms. Musculoskeletal: Reports: no symptoms. Neurological/Psychological: Reports: see HPI. Objective Last 24 Hrs of Vital Signs/I&O Vital Signs Date Time Temp Pulse Resp B/P B/P Pulse O2 O2 Flow FiO2 Mean Ox Delivery Rate 03/29 0944 72 112/50 03/29 0944 72 110/50 03/29 0944 72 110/50 03/29 0652 97.7 68 20 124/54 96 / 2251 98.7 66 20 114/50 95 Room Air 03/28 2032 94 Room Air Room Air 03/28 1426 97.7 64 20 102/53 98 Room Air 03/28 1027 93 Room Air Intake & Output 03/29 1600 / 0800 02/ 0000 Intake Total 60 120 Output Total Balance 60 120 Intake, Oral 60 120 Physical Exam General Appearance: Alert, Oriented X3, Cooperative Skin Temp/Moisture Exam: Warm/Dry Sepsis Skin Exam (color): Normal for Ethnicity HEENT: Atraumatic, PERRLA, EOMI Neck: Supple Cardiovascular: Normal S1, Normal S2 Lungs: Clear to Auscultation Abdomen: Soft, No Tenderness Neurological: Normal Speech, Strength at 5/5 X4 Ext, Normal Tone Extremities: No Edema Assessment/Plan Assessment: 81 year old female with past medical history significant for HTN, BPPV, asthma, ITP treated with platelet transfusion, prednisone, and IVIG, recurrent urinary tract infections (h/o ESBL UTI) with chronic right UPJ obstruction and nephrolithiasis with ureteral stent placement and cystoscopy by Dr. Tesfaye, history of RLE DVT no anticoagulation (lower GI bleed-angioectasia, chronic anemia, history of thyroid cancer s/p thyroidectomy, diastolic heart failure with severe pulmonary hypertension, and steroid-induced diabetes presents with complaints of acute dyspnea. Asthma exacerbation: -Asthma exacerbation secondary to bronchitis viral vs bacterial -Follow up sputum culture -Influenza negative -IV Solu-Medrol 40 mg daily. -Accuchecks tidac while on steroids for h/o steroid induced dm -TRC evaluation -Albuterol nebulizer treatments prn -Measure peak flow with respiratory therapy and monitor trend with treatment STEFANO: -Possibly due to dehydration secondary to low oral intake. -1L NS then repeat BEP, if no improvement -Encourage additional PO intake -We will consider ultrasound kidney to rule out obstructive uropathy -Follow up urine culture -Continue tamsulosin Asymptomatic bacteriuria: h/o esbl -On isolation -Urinalysis was cloudy with positive nitrite, large leukocyteesterase, and packed WBCs -continue to monitor off antibiotics -No urine culture in [facility] repeat UA and UC Chronic anemia: -normocytic -Check iron studies Hypertension: -Continue metoprolol and losartan BPPV: -Continue meclizine DVT ppx: -heparin 5000 units subcutaneous q8h CODE STATUS: Full code Problem List: 1. STEFANO (acute kidney injury) 2. Asthma Pain Ratin Pain Location: NONE Pain Goal: Remain pain free Pain Plan: PAIN PATHWAY Tomorrow's Labs & Rationales: CBC/BEP Teri VILLAREAL,Alessnadro 03/29/17 1355: Attending MD Review Statement Attending Statement Attending MD Statement: examined this patient, discuss w/resident/PA/BRIDGE IRONWORKER, agreed w/resident/PA/BRIDGE IRONWORKER, reviewed EMR data (avail), discussed with nursing, amended to note Attending Assessment/Plan: Patient seen and examined. She reports feeling better today. On examination she has adequate entry bilaterally with no added sounds. She is afebrile hemodynamically stable. She continues to maintain saturation on room air. Recommend tapering down her Solu-Medrol dose to 40 mg daily today. Continue bronchodilator therapy. Patient advised to participate with physical therapy today.
[2017-03-29 15:50] VITALS: BP 116/48
--- NOTE | 2017-03-29 16:44 | ULTRASOUND REPORT ---
EXAMINATION: US RETROPERITONEAL COMPLETE (RENAL) CLINICAL INFORMATION: Chronic UPJ obstruction.. COMPARISON: Multiple prior examinations including CT September 2015 and ultrasound September 2015. TECHNIQUE: Real-time imaging of the kidneys and bladder. FINDINGS: RIGHT KIDNEY: Unable to clearly visualize right kidney because of technical and positioning difficulties. . LEFT KIDNEY: 10.2 x 4.5 x 4.5 cm (SAG x AP x TRV). The kidney is normal in size, contour, and echogenicity. Renal cortical thickness is normal. No calculi or focal parenchymal lesions. No hydronephrosis. BLADDER: . Prevoid bladder volume is 74.9 mL. . Stent visualized IMPRESSION: Limited examination as the right kidney could not be visualized. Additional findings as above
[2017-03-29 22:09] VITALS: BP 100/52
[2017-03-30 06:37] VITALS: BP 134/66
--- NOTE | 2017-03-30 07:55 | PN- Housestaff ---
Luz Marina Ramirez 03/30/17 0755: Subjective Follow-up For: Asthma exacerbation Acute kidney injury Subjective: Patient was bradycardic overnight. She also reports a wet cough. Review of Systems Constitutional: Reports: see HPI. Objective Last 24 Hrs of Vital Signs/I&O Vital Signs Date Time Temp Pulse Resp B/P B/P Pulse O2 O2 Flow FiO2 Mean Ox Delivery Rate 03/30 0722 56 03/30 0637 98.0 46 20 134/66 97 / 0000 Room Air 03/29 2209 97.9 50 20 100/52 97 Room Air / 1924 95 Room Air 03/29 1550 98.6 20 20 116/48 93 Room Air 03/29 0944 72 112/50 03/29 0944 72 110/50 03/29 0944 72 110/50 Intake & Output 03/30 1600 03/30 0800 03/30 0000 Intake Total Output Total Balance Number 1 Bowel Movements Physical Exam General Appearance: Alert, Oriented X3, Cooperative, No Acute Distress Cardiovascular: Normal S1, Normal S2, Bradycardic Lungs: Clear to Auscultation Abdomen: Normal Bowel Sounds, Soft, No Tenderness Extremities: L ankle swelling. Full ROM on active and passive movement Current Medications: Current Medications Sig/Sonya Start time Last Medication Dose Route Stop Time Status Admin Albuterol Sulfate 3 ML BID 03/28 1000 AC 03/29 INH 1921 Albuterol Sulfate 3 ML Q6 PRN 03/27 2200 AC INH Guaifenesin 600 MG Q12 03/28 1000 AC 03/29 PO 2038 Heparin Sodium 5,000 UNIT Q8 03/27 2200 AC (Porcine) SC Insulin Aspart 0 AT BEDTIME 03/30 2200 AC 03/29 SC 2221 Insulin Aspart 0 TIDAC 03/28 1829 AC 03/29 SC 1718 Losartan Potassium 25 MG DAILY 03/28 1000 AC / PO 0944 Meclizine HCl 25 MG DAILY 03/28 1000 AC 03/29 PO 0943 Methylprednisolone 40 MG DAILY 03/29 1000 AC IV Methylprednisolone 40 MG Q12 03/28 0200 DC / IV 0943 Metoprolol Tartrate 25 MG DAILY / 1000 AC 03/29 PO 0944 Tamsulosin HCl 0.4 MG DAILY 03/28 1000 AC / PO 0944 Last 24 Hrs of Lab/Jae Results Last 24 Hrs of Labs/Mics: Laboratory Tests 03/30/17 0745: CBC w Diff Pending, WBC Pending, RBC Pending, Hgb Pending, Hct Pending, MCV Pending, MCH Pending, MCHC Pending, RDW Pending, Plt Count Pending, MPV Pending 03/30/17 0735: Sodium Pending, Potassium Pending, Chloride Pending, Carbon Dioxide Pending, Anion Gap Pending, BUN Pending, Creatinine Pending, BUN/Creatinine Ratio Pending Assessment/Plan Assessment: 81 year old female with past medical history significant for HTN, BPPV, asthma, ITP treated with platelet transfusion, prednisone, and IVIG, recurrent urinary tract infections (h/o ESBL UTI) with chronic right UPJ obstruction and nephrolithiasis with ureteral stent placement and cystoscopy by Dr. Tesfaye, history of RLE DVT no anticoagulation (lower GI bleed-angioectasia, chronic anemia, history of thyroid cancer s/p thyroidectomy, diastolic heart failure with severe pulmonary hypertension, and steroid-induced diabetes presents with complaints of acute dyspnea. Asthma exacerbation: -Asthma exacerbation secondary to bronchitis viral vs bacterial -Follow up sputum culture -Influenza negative -IV Solu-Medrol 40 mg transitioned to Prednisone -Accuchecks tidac while on steroids for h/o steroid induced dm -TRC evaluation -Albuterol nebulizer treatments prn -Measure peak flow with respiratory therapy and monitor trend with treatment STEFANO: -Possibly due to dehydration secondary to low oral intake. -1L NS then repeat BEP, if no improvement -Encourage additional PO intake -We will consider ultrasound kidney to rule out obstructive uropathy -Follow up urine culture -Continue tamsulosin Asymptomatic bacteriuria: h/o esbl -On isolation -Urinalysis was cloudy with positive nitrite, large leukocyteesterase, and packed WBCs -continue to monitor off antibiotics -No urine culture in [facility] repeat UA and UC Chronic anemia: -normocytic -Check iron studies Hypertension: -Continue metoprolol and losartan BPPV: -Continue meclizine DVT ppx: -heparin 5000 units subcutaneous q8h CODE STATUS: Full code Problem List: 1. STEFANO (acute kidney injury) 2. Bronchitis 3. Asthma Pain Ratin Pain Location: NA Pain Goal: Remain pain free Pain Plan: NA Tomorrow's Labs & Rationales: CBC, BEP Estefania Nevarez MD 03/30/17 1312: Attending MD Review Statement Attending Statement Attending MD Statement: examined this patient, discuss w/resident/PA/PROCEDURE MANAGER, agreed w/resident/PA/PROCEDURE MANAGER, reviewed EMR data (avail) Attending Assessment/Plan: 81F PMH HTN, chronic UPJ obstruction, osteoarthritis with chronic right knee pain and left ankle pain, history of right DVT, history of ITP, asthma, vertigo/ BPPV admitted with asthma exacerbation and slightly increased creatinine. She lives at home and has health aides who come to help her from 9a-6p. She is primarily bedbound, can walk with a walker, but needs assistance with all transfers. Patient is slowly improving. She feels better than when she first came in but not back to her baseline. She is concerned of her blood glucose levels, which are <200 today. She also reports bilateral pain from her toenails, which are overgrown. She complains of vertigo with left gaze but this is chronic for her. 1. Asthma exacerbation 2. Elevated creatinine Plan - Continue on general medicine - Continue Solumedrol - Monitor renal function - Podiatry consult - Continue home medications - Continue nebulizer treatments - DVT PPx - Anticipated discharge tomorrow if breathing improves
[2017-03-30 10:22] LABS: ABSOLUTE BASOPHIL COUNT 0 /CUMM (0.0-0.2); ABSOLUTE EOSINOPHIL COUNT 0 /CUMM (0.0-0.7); ABSOLUTE GRANULOCYTE CT 6.8 /CUMM (1.4-6.5); ABSOLUTE LYMPH COUNT 0.6 /CUMM (1.2-3.4); ABSOLUTE MONOCYTE COUNT 0.5 /CUMM (0.10-0.60); BASOPHIL % 0.1 % (0.0-2.0); EOSINOPHIL % 0 % (0-5); HEMATOCRIT 25.4 % (37-47); MEAN CORPUSCULAR HGB 28.2 PG (27.0-31.0); MEAN CORPUSCULAR HGB CONC 33.7 G/DL (33.0-37.0); MEAN CORPUSCULAR VOLUME 83.7 FL (81.0-99.0); MEAN PLATELET VOLUME 6.7 FL (7.4-10.4); PLATELET COUNT 314 /CUMM (130-400); RBC DISTRIBUTION WIDTH 15.5 % (11.5-14.5); RED BLOOD CELL CT 3.04 /CUMM (4.20-5.40); WHITE BLOOD CELL COUNT 7.9 /CUMM (4.8-10.8)
[2017-03-30 11:34] LABS: GRANULOCYTE % 85.8 % (42.2-75.2)
[2017-03-30 14:54] VITALS: BP 100/50
[2017-03-30 22:32] VITALS: BP 110/60
[2017-03-31 06:24] VITALS: BP 130/62
--- NOTE | 2017-03-31 08:25 | PN- Housestaff ---
Lester VILLAREAL,[facility] 03/31/17 0825: Subjective Follow-up For: Asthma exacerbation Subjective: No overnight acute events. Patient seen and examined. Resting comfortably in the bed. Reports improvement in symptoms since arrival. States that she was not seen by die maker trim yesterday and will like to see him today for toenail clipping. Reports bilateral pain from her overgrown toenails. Denies fevers and chills nausea vomiting diarrhea Review of Systems Constitutional: Reports: see HPI. Objective Last 24 Hrs of Vital Signs/I&O Vital Signs Date Time Temp Pulse Resp B/P B/P Pulse O2 O2 Flow FiO2 Mean Ox Delivery Rate 03/31 1118 98 Room Air 03/31 1029 64 132/60 03/31 1029 64 132/60 03/31 1028 64 132/60 03/31 0624 97.5 57 22 130/62 98 Room Air / 2232 97.7 57 19 110/60 96 Room Air / 1600 Room Air / 1454 97.9 59 20 100/50 98 Room Air Physical Exam General Appearance: Alert, Oriented X3, Cooperative Cardiovascular: Normal S1, Normal S2, No Murmurs Lungs: Normal Air Movement, No wheezes Abdomen: Normal Bowel Sounds, Soft, No Tenderness Neurological: Normal Speech Current Medications: Current Medications Sig/Sonya Start time Last Medication Dose Route Stop Time Status Admin Albuterol Sulfate 3 ML BID PRN 03/30 1131 AC INH Albuterol Sulfate 3 ML Q6 PRN 03/27 2200 AC INH Guaifenesin 600 MG Q12 03/28 1000 AC 03/31 PO 1024 Heparin Sodium 5,000 UNIT Q8 03/27 2200 AC (Porcine) SC Insulin Aspart 0 AT BEDTIME 03/30 2200 AC 03/29 SC 2221 Insulin Aspart 0 TIDAC 03/28 1829 AC 03/30 SC 1235 Losartan Potassium 25 MG DAILY 03/28 1000 AC 03/31 PO 1028 Meclizine HCl 25 MG DAILY 03/28 1000 AC 03/31 PO 1029 Methylprednisolone 40 MG DAILY 03/29 1000 DC IV Metoprolol Tartrate 25 MG DAILY 03/28 1000 AC 03/31 PO 1029 Prednisone 40 MG DAILY 03/30 1406 DC 02/ PO 03/31 1001 1024 Tamsulosin HCl 0.4 MG DAILY 03/28 1000 AC 03/31 PO 1029 Assessment/Plan Assessment: 81 year old female with past medical history significant for HTN, BPPV, asthma, ITP treated with platelet transfusion, prednisone, and IVIG, recurrent urinary tract infections (h/o ESBL UTI) with chronic right UPJ obstruction and nephrolithiasis with ureteral stent placement and cystoscopy by Dr. Tesfaye, history of RLE DVT no anticoagulation (lower GI bleed-angioectasia, chronic anemia, history of thyroid cancer s/p thyroidectomy, diastolic heart failure with severe pulmonary hypertension, and steroid-induced diabetes presents with complaints of acute dyspnea. #Asthma exacerbation: -Asthma exacerbation secondary to bronchitis viral vs bacterial -Sputum culture if able, patient is unable to bring up phlegm -Influenza negative -Prednisone taper completed -Accuchecks tidac while on steroids for h/o steroid induced dm -TRC evaluation -Albuterol nebulizer treatments prn -Measure peak flow with respiratory therapy and monitor trend with treatment #STEFANO:-Resolved returned to baseline creatinine 1.3 -Possibly due to dehydration secondary to low oral intake. -Encourage additional PO intake -U/S kidney showed normal left kidney. The right kidney could not be visualized -Continue tamsulosin #Asymptomatic bacteriuria: h/o esbl -On isolation -Urinalysis was cloudy with positive nitrite, large leukocyteesterase, and packed WBCs -Urine culture-contaminated. Patient does not have any symptoms. No need to repeat at this moment. -continue to monitor off antibiotics Chronic anemia: -normocytic -Check iron studies-iron 35, TIBC 240, ferritin pending Hypertension: -Continue metoprolol and losartan BPPV: -Continue meclizine DVT ppx/heparin 5000 units subcutaneous q8h/Full code Problem List: 1. Bronchitis Pain Ratin Pain Location: n/a Pain Goal: Pain 4 or less Pain Plan: prn Tomorrow's Labs & Rationales: none Estefania Nevarez MD 03/31/17 1200: Attending MD Review Statement Attending Statement Attending MD Statement: examined this patient, discuss w/resident/PA/CORE ANALYSIS OPERATOR, agreed w/resident/PA/CORE ANALYSIS OPERATOR, reviewed EMR data (avail) Attending Assessment/Plan: 81F PMH HTN, chronic UPJ obstruction, osteoarthritis with chronic right knee pain and left ankle pain, history of right DVT, history of ITP, asthma, vertigo/ BPPV admitted with asthma exacerbation and slightly increased creatinine. She lives at home and has health aides who come to help her from 9a-6p. She is primarily bedbound, can walk with a walker, but needs assistance with all transfers. Patient is slowly improving. She feels better than when she first came in but not back to her baseline. She is concerned of her blood glucose levels, which are <200 today. She also reports bilateral pain from her toenails, which are overgrown. She complains of vertigo with left gaze but this is chronic for her. 1. Asthma exacerbation 2. Elevated creatinine Plan - Stable for discharge home - Finish Prednisonecourse - Podiatry consult, inpatient or outpatient - Continue home medications
--- NOTE | 2017-03-31 13:23 | Patient Discharge Instructions ---
Discharge Instructions General Discharge Information You were seen/treated for: Asthma exacerbation secondary to bronchitis Acute renal injury Asymptomatic bacteriuria Watch for these problems: Fever, chills, Shortness of breath, wheezing, pain and buring with urination, increased urgency Or frequency Special Instructions: -Please follow-up with PCP within one week of discharge -If your symptoms worsen return to ED You have asymptomatic bacteriuria and currently do not required antibiotics but if you develop pain/burning/increase urgency or frequency with urination contact your PCP or come to the ED. Diet Continue normal diet: Yes Activity Activity Self Limited: Yes Acute Coronary Syndrome Inclusion Criteria At DC or during hospital stay patient has or had the following: ACS DIAGNOSIS No Discharge Core Measures Meds if any: Prescribed or Continued at Discharge Meds if any: NOT Prescribed or Continued at Discharge Congestive Heart Failure Inclusion Criteria At DC or during hospital stay patient has or had the following: CHF DIAGNOSIS No Discharge Core Measures Meds if any: Prescribed or Continued at Discharge Meds if any: NOT Prescribed or Continued at Discharge Cerebrovascular accident Inclusion Criteria At DC or during hospital stay patient has or had the following: CVA/TIA Diagnosis No Discharge Core Measures Meds if any: Prescribed or Continued at Discharge Meds if any: NOT Prescribed or Continued at Discharge Venous thromboembolism Inclusion Criteria VTE Diagnosis No VTE Type NONE VTE Confirmed by (Test) NONE Discharge Core Measures - Per Current guidelines, there needs to be overlap - treatment for the first 5 days of Warfarin therapy. - If discharged on Warfarin prior to 5 days of - overlap therapy, the patient will need to be - assessed for post discharge needs including - *Post discharge parental anticoagulation - *Warfarin and/or parental anticoagulation education - *Follow up date to check INR post discharge Meds if any: Prescribed or Continued at Discharge Note: Overlap Therapy is Warfarin and Anticoagulant Meds if any: NOT Prescribed or Continued at Discharge
[2017-03-31] MEDS ORDERED: VENTOLIN HFA18 GM INH (13:48)
[2017-03-31 14:51] VITALS: BP 118/56
[2017-03-31 15:54] LABS: ABSOLUTE BASOPHIL COUNT 0 /CUMM (0.0-0.2); ABSOLUTE EOSINOPHIL COUNT 0 /CUMM (0.0-0.7); ABSOLUTE GRANULOCYTE CT 5.9 /CUMM (1.4-6.5); ABSOLUTE LYMPH COUNT 0.5 /CUMM (1.2-3.4); ABSOLUTE MONOCYTE COUNT 0.3 /CUMM (0.10-0.60); BASOPHIL % 0.1 % (0.0-2.0); EOSINOPHIL % 0.1 % (0-5); HEMATOCRIT 26.4 % (37-47); MEAN CORPUSCULAR HGB 28.4 PG (27.0-31.0); MEAN CORPUSCULAR HGB CONC 33.5 G/DL (33.0-37.0); MEAN CORPUSCULAR VOLUME 84.6 FL (81.0-99.0); MEAN PLATELET VOLUME 6.6 FL (7.4-10.4); PLATELET COUNT 303 /CUMM (130-400); RBC DISTRIBUTION WIDTH 15.1 % (11.5-14.5); RED BLOOD CELL CT 3.12 /CUMM (4.20-5.40); WHITE BLOOD CELL COUNT 6.8 /CUMM (4.8-10.8)
--- NOTE | 2017-03-31 16:32 | Cons- Podiatry ---
General Information and HPI Consulting Request Date of Consult: 03/31/17 Requested By: Estefania Nevarez MD History of Present Illness: Ms. Carter is an 81 year old female admitted Allergies/Medications Allergies: Coded Allergies: Sulfa (Sulfonamide Antibiotics) (THROMBOCYTOPENIA 12/13/16) Penicillins (Severe, BLEEDING - UNKNOWN PT DOESNT REMEMBER 10/10/15) sulfamethoxazole (From BACTRIM) (Severe, Thrombocytopenia 10/13/15) trimethoprim (From BACTRIM) (Severe, Thrombocytopenia 10/13/15) warfarin (Severe, EXCESSIVE BLEEDING 10/10/15) aspirin (BLEED 05/02/15) Home Med List: Albuterol Sulfate (Ventolin Hfa) 90 MCG HFA.AER.AD 2 PUF INH Q4-6 PRN PRN shortness of breath, wheezing Losartan Potassium (Cozaar) 25 MG TABLET 1 TAB PO DAILY BP (Reported) Meclizine HCl 25 MG TABLET 1 TAB PO DAILY DIZZINESS (Reported) Metoprolol Tartrate 25 MG TABLET 1 TAB PO DAILY BP (Reported) Tamsulosin HCl 0.4 MG CAP.ER.24H 1 CAP PO DAILY URINE (Reported) Past History Medical History Blood Transfusion Hx: Yes Neurological: vertigo EENT: NONE Cardiovascular: hypertension Respiratory: asthma, COPD Gastrointestinal: lower GI bleed, umbilical hernia Hepatic: NONE Renal: nephrolithiasis, KIDNEY STONE chronic right UPJ obstruction Musculoskeletal: osteoarthritis Psychiatric: NONE Endocrine: NONE Blood Disorders: DVT, ITP 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 Home Who Do You Live With? self Services at Home: Home Health Aide (8:30 AM-5:30 PM 7 days/week) Primary Language: Tajik Smoking Status: Unknown If Ever Smoked ETOH Use: denies use Illicit Drug Use: denies illicit drug use Employment History Retired? yes Assessment/Plan Consult Acknowledgment - Thank you for your consult request.
[2017-04-01 06:58] VITALS: BP 142/66
[2017-04-01 08:51] VITALS: BP 142/68
--- NOTE | 2017-04-01 09:14 | PN- Housestaff ---
Subjective Follow-up For: asthma exacerbation Review of Systems Constitutional: Reports: no symptoms. Objective Last 24 Hrs of Vital Signs/I&O Vital Signs Date Time Temp Pulse Resp B/P B/P Pulse O2 O2 Flow FiO2 Mean Ox Delivery Rate 04/01 0751 68 142/68 04/01 0851 68 142/68 04/01 0851 68 142/68 04/01 0658 97.9 60 20 142/66 95 02/07 0000 Room Air 03/31 1451 98.0 54 20 118/56 96 Room Air Physical Exam General Appearance: Alert, Oriented X3, Cooperative, No Acute Distress Cardiovascular: Regular Rate, Normal S1, Normal S2, No Murmurs Lungs: RLL rhonchi Abdomen: Normal Bowel Sounds, Soft, No Tenderness, No Masses Extremities: No Clubbing, No Cyanosis, No Edema, Normal Pulses Current Medications: Current Medications Sig/Sonya Start time Last Medication Dose Route Stop Time Status Admin Albuterol Sulfate 3 ML BID PRN 03/30 1131 DCD INH Albuterol Sulfate 3 ML Q6 PRN 03/27 2200 DCD INH Guaifenesin 600 MG Q12 03/28 1000 DCD / PO 0851 Heparin Sodium 5,000 UNIT Q8 03/27 2200 DCD (Porcine) SC Insulin Aspart 0 AT BEDTIME 03/30 2200 DCD 03/29 FL 2221 Insulin Aspart 0 TIDAC 03/28 1829 DCD 03/31 SC 1658 Losartan Potassium 25 MG DAILY 03/28 1000 DCD / PO 0851 Meclizine HCl 25 MG DAILY 03/28 1000 DCD / PO 0852 Metoprolol Tartrate 25 MG DAILY 03/28 1000 DCD 02/ PO 0851 Tamsulosin HCl 0.4 MG DAILY 03/28 1000 DCD / PO 0851 Last 24 Hrs of Lab/Jae Results Last 24 Hrs of Labs/Mics: Laboratory Tests 04/01/17 0953: Anion Gap 14, Estimated GFR 39 L, BUN/Creatinine Ratio 37.7 H, CBC w Diff NO MAN DIFF REQ, RBC 3.27 L, MCV 84.8, MCH 28.3, MCHC 33.4, RDW 15.5 H, MPV 6.5 L, Gran % 78.9 H, Lymphocytes % 13.4 L, Monocytes % 7.4, Eosinophils % 0, Basophils % 0.3, Absolute Granulocytes 5.4, Absolute Lymphocytes 0.9 L, Absolute Monocytes 0.5, Absolute Eosinophils 0, Absolute Basophils 0 03/31/17 1352: Anion Gap 14, Estimated GFR 36 L, BUN/Creatinine Ratio 30.7 H, Ferritin 377.0 H, CBC w Diff NO MAN DIFF REQ, RBC 3.12 L, MCV 84.6, MCH 28.4, MCHC 33.5, RDW 15.1 H, MPV 6.6 L, Gran % 87.0 H, Lymphocytes % 8.0 L, Monocytes % 4.8, Eosinophils % 0.1, Basophils % 0.1, Absolute Granulocytes 5.9, Absolute Lymphocytes 0.5 L, Absolute Monocytes 0.3, Absolute Eosinophils 0, Absolute Basophils 0 Assessment/Plan Assessment: 81 year old female with past medical history significant for HTN, BPPV, asthma, ITP treated with platelet transfusion, prednisone, and IVIG, recurrent urinary tract infections (h/o ESBL UTI) with chronic right UPJ obstruction and nephrolithiasis with ureteral stent placement and cystoscopy by Dr. Tesfaye, history of RLE DVT no anticoagulation (lower GI bleed-angioectasia, chronic anemia, history of thyroid cancer s/p thyroidectomy, diastolic heart failure with severe pulmonary hypertension, and steroid-induced diabetes presents with complaints of acute dyspnea. #Asthma exacerbation: -Asthma exacerbation secondary to bronchitis viral vs bacterial -Influenza negative -Prednisone completed -Accuchecks tidac while on steroids for h/o steroid induced dm -TRC evaluation -Albuterol nebulizer treatments prn #STEFANO:-Resolved returned to baseline creatinine 1.3 -Encourage additional PO intake -U/S kidney showed normal left kidney. The right kidney could not be visualized -Continue tamsulosin #Asymptomatic bacteriuria: h/o esbl -On isolation -Urinalysis was cloudy with positive nitrite, large leukocyteesterase, and packed WBCs -Urine culture-contaminated. Patient does not have any symptoms. No need to repeat at this moment. -continue to monitor off antibiotics Chronic anemia: -normocytic -Check iron studies-iron 35, TIBC 240, ferritin pending Hypertension: -Continue metoprolol and losartan BPPV: -Continue meclizine DVT ppx-heparin 5000 units subcutaneous q8h Full code Stable for discharge with home health services today Problem List: 1. BPPV 2. Asthma 3. Benign essential hypertension 4. R NEPHROLITHIASIS 5. Gait instability 6. Drug-induced ITP 7. Bronchitis Pain Ratin Pain Location: n/a Pain Goal: Pain 4 or less Pain Plan: prn Tomorrow's Labs & Rationales: none, discharge
[2017-04-01 11:09] LABS: ABSOLUTE BASOPHIL COUNT 0 /CUMM (0.0-0.2); ABSOLUTE EOSINOPHIL COUNT 0 /CUMM (0.0-0.7); ABSOLUTE GRANULOCYTE CT 5.4 /CUMM (1.4-6.5); ABSOLUTE LYMPH COUNT 0.9 /CUMM (1.2-3.4); ABSOLUTE MONOCYTE COUNT 0.5 /CUMM (0.10-0.60); BASOPHIL % 0.3 % (0.0-2.0); EOSINOPHIL % 0 % (0-5); GRANULOCYTE % 78.9 % (42.2-75.2); HEMATOCRIT 27.7 % (37-47); MEAN CORPUSCULAR HGB 28.3 PG (27.0-31.0); MEAN CORPUSCULAR HGB CONC 33.4 G/DL (33.0-37.0); MEAN CORPUSCULAR VOLUME 84.8 FL (81.0-99.0); MEAN PLATELET VOLUME 6.5 FL (7.4-10.4); PLATELET COUNT 295 /CUMM (130-400); RBC DISTRIBUTION WIDTH 15.5 % (11.5-14.5); RED BLOOD CELL CT 3.27 /CUMM (4.20-5.40); WHITE BLOOD CELL COUNT 6.8 /CUMM (4.8-10.8)
--- NOTE | 2017-04-01 11:51 | Discharge Summary ---
Visit Information Visit Dates Admission Date: 03/27/17 Discharge Date: 04/01/17 Hospital Course Course Attending Physician: Estefania Nevarez MD Primary Care Physician: Reinaldo Blake MD Hospital Course: 81 year old female with past medical history significant for HTN, BPPV, asthma, ITP treated with platelet transfusion, prednisone, and IVIG, recurrent urinary tract infections (h/o ESBL UTI) with chronic right UPJ obstruction and nephrolithiasis with ureteral stent placement and cystoscopy by Dr. Tesfaye, history of RLE DVT no anticoagulation (lower GI bleed-angioectasia, chronic anemia, history of thyroid cancer s/p thyroidectomy, diastolic heart failure with severe pulmonary hypertension, and steroid-induced diabetes presents with complaints of acute dyspnea. The patient was treated for an asthma exacerbation presumed to be secondary to a viral upper respiratory infection. She was monitored off antibiotics and treated with a short course of steroids which improved her respiratory symptoms. Influenza testing was negative and there was no infiltrate on chest x-ray consistent with pneumonia. Her maximum temperature during admission was 100.1 without an elevated white blood cell count. Respiratory therapy monitored her, titrated her supplemental oxygen and provided nebulized albuterol breathing treatments. Her peak flow was reduced consistent with an asthma exacerbation. The patient was very concerned about her blood sugars given her history of steroid induced diabetes. The patient's creatinine was elevated but stable ~1.3 and renal ultrasound was only able to visualize a normal left kidney. The right kidney could not be visualized. Her tamsulosin was continued. Urinalysis was cloudy with positive nitrite, large leukocyte esterase, and packed WBCs. She never complained of any dysuria or symptoms of urinary tract infection and was monitored off antibiotics. Physical therapy also evaluated the patient and identified some unsafe transfer behaviors and movements with the rolling walker and recommended continuing home physical therapy after discharge. The patient was seen by podiatry for overgrown toenails. Allergies: Coded Allergies: Sulfa (Sulfonamide Antibiotics) (THROMBOCYTOPENIA 12/13/16) Penicillins (Severe, BLEEDING - UNKNOWN PT DOESNT REMEMBER 10/10/15) sulfamethoxazole (From BACTRIM) (Severe, Thrombocytopenia 10/13/15) trimethoprim (From BACTRIM) (Severe, Thrombocytopenia 10/13/15) warfarin (Severe, EXCESSIVE BLEEDING 10/10/15) aspirin (BLEED 05/02/15) Disposition Summary Disposition Principal Diagnosis: Asthma exacerbation Additional Diagnosis: Hypertension Pulmonary hypertension/Tricuspid regurgitation ITP BPPV Discharge Disposition: home health services Discharge Instructions General Discharge Information Code Status: Full Code Patient's Diet: Heart healthy Patient's Activity: Assistance with transfers and rolling walker Follow-Up Instructions/Appts: Please follow up with your primary care physician in 1-2 weeks of discharge. Medications at Discharge Discharge Medications: Continue taking these medications: Tamsulosin HCl (Tamsulosin HCl) 0.4 MG CAP.ER.24H 1 Capsule ORAL DAILY Days = 30 Comments: Last Taken: 04/01/17 Time: 0850 AM Losartan Potassium (Cozaar) 25 MG TABLET 1 Tablet ORAL DAILY Comments: Last Taken: 04/01/17 Time: 0850 AM Meclizine HCl (Meclizine HCl) 25 MG TABLET 1 Tablet ORAL DAILY Comments: Last Taken: 04/01/17 Time: 0850 AM Metoprolol Tartrate (Metoprolol Tartrate) 25 MG TABLET 1 Tablet ORAL DAILY Qty = 30 Comments: Last Taken: 04/01/17 Time: 0850 AM Start taking the following new medications: Albuterol Sulfate (Ventolin Hfa) 90 MCG HFA.AER.AD 2 Puff Inhale through mouth EVERY 4-6 HOURS NEEDED as needed for shortness of breath, wheezing Qty = 1 No Refills Comments: NOT GIVEN IN HOSPITAL Copies To: Lou VILLAREAL,Reinaldo Lange MD Review Statement Documenting Attending: Estefania Nevarez MD, MD Review Statement Documenting Attending: Estefania Nevarez MD
== END 2017-04-01 11:12 | disposition home health service (06) | DRG 202 ==
LOC: ERH 10:21 → ERHI 16:58 → 2NB 16:58 → ENRESERV 19:22 → ENTRNSPT 20:10 → EDTRNSPT 20:28 → EDTRNSPTSTS 20:28 → 2NB 20:38 → CMPTRNSPT 20:45 → ENPENDDIS 04-01 10:22 → 2NB 04-01 11:12
PROVIDERS: Internal Medicine; Physician Assistant Medical; Student in an Organized Health Care Education/Training Program
DX: J45.901 Unspecified asthma with (acute) exacerbation (principal); N17.9 Acute kidney failure, unspecified; D69.3 Immune thrombocytopenic purpura; I27.20 Pulmonary hypertension, unspecified; I11.0 Hypertensive heart disease with heart failure; E09.9 Drug or chemical induced diabetes mellitus without complications; D69.6 Thrombocytopenia, unspecified; I50.32 Chronic diastolic (congestive) heart failure; H81.10 Benign paroxysmal vertigo, unspecified ear; R82.71 Bacteriuria; Z87.440 Personal history of urinary (tract) infections; Z86.718 Personal history of other venous thrombosis and embolism; Z85.850 Personal history of malignant neoplasm of thyroid; E89.0 Postprocedural hypothyroidism; N20.0 Calculus of kidney; Z96.0 Presence of urogenital implants; Z88.6 Allergy status to analgesic agent; Z88.1 Allergy status to other antibiotic agents; Z88.0 Allergy status to penicillin; Z88.8 Allergy status to other drugs, medicaments and biological substances; M17.11 Unilateral primary osteoarthritis, right knee; M19.072 Primary osteoarthritis, left ankle and foot; Z74.01 Bed confinement status; J40 Bronchitis, not specified as acute or chronic
CPT/HCPCS: 2NBP; 84133; 84300; 36415; 71045; 76775; 81001; 82436; 82570; 87040; 87070; 87086; 87804; 87804-59; 93005; 93010; 97161-GP; 97530-GO; J1644; J2920

== ENCOUNTER 2017-11-17 12:37 | Inpatient (IN) | payer OTHER, MEDICARE ==
[~2017-11-17] VITALS: Ht 160 cm; Wt 56.7 kg
--- NOTE | 2017-11-17 15:49 | ED EAR COMPLAINT ---
See Addendum History of Present Illness General Chief Complaint: Dyspnea (COPD, CHF, Other) Stated Complaint: BIBA NOSE BLEED SOB Source: patient, old records Exam Limitations: poor historian Vital Signs & Intake/Output Vital Signs & Intake/Output Vital Signs Date Time Temp Pulse Resp B/P B/P Pulse O2 O2 Flow FiO2 Mean Ox Delivery Rate 11/17 1310 98 Room Air 11/17 1242 98.4 78 18 113/67 98 Room Air Allergies Coded Allergies: Sulfa (Sulfonamide Antibiotics) (THROMBOCYTOPENIA 12/13/16) Penicillins (Severe, BLEEDING - UNKNOWN PT DOESNT REMEMBER 10/10/15) sulfamethoxazole (From BACTRIM) (Severe, Thrombocytopenia 10/13/15) trimethoprim (From BACTRIM) (Severe, Thrombocytopenia 10/13/15) warfarin (Severe, EXCESSIVE BLEEDING 10/10/15) aspirin (BLEED 05/02/15) Reconcile Medications Albuterol Sulfate (Ventolin Hfa) 90 MCG HFA.AER.AD 2 PUF INH Q4-6 PRN PRN shortness of breath, wheezing Losartan Potassium (Cozaar) 25 MG TABLET 1 TAB PO DAILY BP (Reported) Meclizine HCl 25 MG TABLET 1 TAB PO DAILY DIZZINESS (Reported) Metoprolol Tartrate 25 MG TABLET 1 TAB PO DAILY BP (Reported) Tamsulosin HCl 0.4 MG CAP.ER.24H 1 CAP PO DAILY URINE (Reported) Triage Note: 82 YO FEMALE HOMERO FROM HOME FOR EVAL OF EPISTAXIS THIS AM. PT REPORTS SHE ALSO HAS BEEN HALLUCINTING THE LAST 3 NIGHTS, STATES HALLUCINATIONS ARE ONLY AT NIGHTTIME "I SEE PICTURES MOVING" PT REPORTS SHE HAS HAD A VERY BAD COLD. C/O DRY COUGH. RA SATS 98%. Triage Nurses Notes Reviewed? yes HPI: Patient presents for evaluation of an epistaxis episode. Patient states that she felt cold this morning and so she attempted to take her blood sugar level. She states her doctor told her to check her blood sugar even though she doesn't have diabetes. She states that the blood looked orange in color. Shortly after that she began bleeding from the left nostril that then converted over to the right. The blood coming from her nose also looked strange orange color. Her nosebleed lasted a few minutes and then resolved. She refers cold symptoms as a results of a visitor who is also sick. She spoke with her primary care doctor and was prescribed a medication (questionably an antibiotic). After she began taking the medication she states she was experiencing visual hallucinations. Past History Travel History Traveled to [place] past 21 day No Medical History Any Pertinent Medical History? 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 No Review of Systems Review of Systems Constitutional: Reports: no symptoms. EENTM: Reports: see HPI. Respiratory: Reports: no symptoms. Cardiovascular: Reports: no symptoms. GI: Reports: no symptoms. Genitourinary: Reports: no symptoms. Musculoskeletal: Reports: no symptoms. Skin: Reports: no symptoms. Neurological/Psychological: Reports: no symptoms. Hematologic/Endocrine: Reports: no symptoms. Immunologic/Allergic: Reports: no symptoms. All Other Systems: Reviewed and Negative Physical Exam Physical Exam Ears: Bilateral: canal normal, Tympanic normal. Comments: Gen.: Well-nourished, well-developed, no acute respiratory distress. Head: Normocephalic, atraumatic. Eyes: Normal inspection bilaterally, PERRLA, EOMI Ears: Normal inspection bilaterally (see above) Nose: Left anterior septal hyperemia with no active bleeding and no signs of trauma Throat/mouth : Moist mucosa, no oropharyngeal erythema soft tissue swelling or exudates Neck: Supple, full range of motion, no goiter, no lymphadenopathy Heart: Regular rate and rhythm, no murmurs rubs or gallops Lungs: Clear to auscultation bilaterally with normal air entry Chest: Nontender Back: Normal range of motion Abdomen: Soft, nontender, nondistended, normal bowel sounds Extremities: Normal range of motion grossly, equal radial pulses, no cyanosis clubbing or edema Neurologic: Cranial nerves grossly intact, speech is clear Skin: warm and dry Psychiatric: Calm, cooperative, no apparent delusions or hallucinations Lymphatic: No cervical or supraclavicular lymphadenopathy Progress Differential Diagnoses I considered the following diagnoses in my evaluation of the patient: Anemia, electrolyte abnormality, dehydration, thrombocytopenia Plan of Care: Orders Procedure Date/time Status PROTHROMBIN TIME 11/17 154 Complete CBC WITHOUT DIFFERENTIAL 11/17 1546 Complete BASIC METABOLIC PANEL 11/17 154 Complete EKG 11/17 1240 Active Laboratory Tests 11/17/17 1629: Anion Gap 11, Estimated GFR 29 L, BUN/Creatinine Ratio 17.6, Glucose 86, Calcium 8.9, PT 14.8 H, INR 1.35 H, CBC w Diff NO MAN DIFF REQ, RBC 3.27 L, MCV 85.9, MCH 29.0, MCHC 33.7, RDW 14.9 H, MPV 6.9 L, Gran % 65.4, Lymphocytes % 24.4, Monocytes % 7.2, Eosinophils % 2.6, Basophils % 0.4, Absolute Granulocytes 3.6, Absolute Lymphocytes 1.3, Absolute Monocytes 0.4, Absolute Eosinophils 0.1, Absolute Basophils 0 Initial ED EKG: NSR, rate (67), RBBB (INCOMPLETE) Prior EKG: unchanged Departure Departure Disposition: HOME OR SELF CARE Condition: Stable Clinical Impression Primary Impression: Epistaxis Secondary Impressions: Anemia Qualifiers: Anemia type: unspecified type Qualified Code: D64.9 - Anemia, unspecified Renal insufficiency Referrals: Reinaldo Blake MD (PCP/Family) Additional Instructions: Follow-up with your primary care physician for reevaluation this week. Return if any concerns or sudden worsening. Please increase your fluid intake given the mild increase in your kidney functions. Please note that there might be incidental findings in your evaluation that are unrelated to the current emergency department visit. Please notify your primary care doctor about this emergency department visit in order to obtain and review all of the testing performed so that these incidental findings can be monitored as needed. If you had an x-ray performed, please understand that some fractures or other findings may not be seen on the initial set of x-rays. If your symptoms persist you might need a repeat set of x-rays to check for such a fracture. If you had a laceration evaluated, please understand that foreign bodies such as glass or wood may not be visible to the naked eye or on plain x-rays. If the wound becomes red, swollen, increasingly more painful or if there is any drainage from the wound, please have it reevaluated by a physician for the possibility of a retained foreign body. If you're unable to follow up as outlined in the discharge instructions please return to the emergency department. Thank you for choosing the [facility] Emergency Department for your care. It was a pleasure to serve you today. Phi Dumont M.D. [facility] Departure Forms: Customer Survey General Discharge Information
[2017-11-17 16:48] LABS: ABSOLUTE BASOPHIL COUNT 0 /CUMM (0.0-0.2); ABSOLUTE EOSINOPHIL COUNT 0.1 /CUMM (0.0-0.7); ABSOLUTE GRANULOCYTE CT 3.6 /CUMM (1.4-6.5); ABSOLUTE LYMPH COUNT 1.3 /CUMM (1.2-3.4); ABSOLUTE MONOCYTE COUNT 0.4 /CUMM (0.10-0.60); BASOPHIL % 0.4 % (0.0-2.0); EOSINOPHIL % 2.6 % (0-5); GRANULOCYTE % 65.4 % (42.2-75.2); HEMATOCRIT 28.1 % (37-47); MEAN CORPUSCULAR HGB CONC 33.7 G/DL (33.0-37.0); MEAN CORPUSCULAR VOLUME 85.9 FL (81.0-99.0); MEAN PLATELET VOLUME 6.9 FL (7.4-10.4); PLATELET COUNT 233 /CUMM (130-400); RBC DISTRIBUTION WIDTH 14.9 % (11.5-14.5); RED BLOOD CELL CT 3.27 /CUMM (4.20-5.40); WHITE BLOOD CELL COUNT 5.4 /CUMM (4.8-10.8)
[2017-11-17 16:53] LABS: PT 14.8 SEC (9.4-12.5)
--- NOTE | 2017-11-17 21:44 | History & Physical ---
Angelo Young 11/17/17 2144: General Information and HPI MD Statement: I have seen and personally examined DARRIN ALRSEN and documented this H&P. The patient is a 82 year old F who presented with a patient stated chief complaint of epistaxis. History of Present Illness: Patient is a 82 year old female with PMH significant for BPPV, HTN, ITP, nephrolithiasis with chronic R UPJ obstruction s/p ureteral stent placement and cystoscopy by Dr. Tesfaye, history of RLE DVT with no anticoagulation (lower GI bleed-angioectasia), chronic anemia, history of thyroid CA s/po thyroidectomy, diastolic HF with pulmonary hypertension. Patient came to ED with complaint of epistaxis. Bleeding had started from left nostril and converted to the right and the patient was concerned with the orange color of the blood. Patient reports recent fevers, chills and cold like symptoms recently whre she was treated with levofloxacin by her PCP for 4 days. During this time, patient was experiencing visual hallucinations. She had discontinued taking the antibiotic and claimed the hallucinations went away. She has noticed decreased appetite for the apst 2 years. Patient lives at home with an aid who comes from 9AM to 6PM. She states she is okay after the aid leaves and usually goes to sleep. Patient had incontinence and wears a diaper. She has noticed significant lower extremity weakness especially in the right lower extremity. Previously was using a cane and now uses a walker. She denies any history of smoking or drinking or illicit drug use. PCP: Dr. Lino Allergies/Medications Allergies: Coded Allergies: Sulfa (Sulfonamide Antibiotics) (THROMBOCYTOPENIA 12/13/16) Penicillins (Severe, BLEEDING - UNKNOWN PT DOESNT REMEMBER 10/10/15) sulfamethoxazole (From BACTRIM) (Severe, Thrombocytopenia 10/13/15) trimethoprim (From BACTRIM) (Severe, Thrombocytopenia 10/13/15) warfarin (Severe, EXCESSIVE BLEEDING 10/10/15) aspirin (BLEED 05/02/15) Home Med list Albuterol Sulfate (Ventolin Hfa) 90 MCG HFA.AER.AD 2 PUF INH Q4-6 PRN PRN shortness of breath, wheezing Losartan Potassium (Cozaar) 25 MG TABLET 1 TAB PO DAILY BP (Reported) Meclizine HCl 25 MG TABLET 1 TAB PO DAILY DIZZINESS (Reported) Metoprolol Tartrate 25 MG TABLET 1 TAB PO DAILY BP (Reported) Tamsulosin HCl 0.4 MG CAP.ER.24H 1 CAP PO DAILY URINE (Reported) Past History Travel History Traveled to [place] past 21 day No Medical History Neurological: vertigo EENT: NONE Cardiovascular: hypertension Respiratory: asthma, COPD Gastrointestinal: lower GI bleed, umbilical hernia Hepatic: NONE Renal: nephrolithiasis, KIDNEY STONE chronic right UPJ obstruction Musculoskeletal: osteoarthritis Psychiatric: NONE Endocrine: NONE Blood Disorders: DVT, ITP Cancer(s): thyroid cancer THREAD PULLER/Reproductive: NONE History of MRSA: No History of VRE: No History of CDIFF: No Surgical History Surgical History: appendectomy, cholecystectomy, thyroid surgery status post right foot surgery Past Family/Social History Family History Relations & Conditions if any Relation not specified for: FH: diabetes mellitus Renal cancer Psychosocial History Who Do You Live With? self Services at Home: Home Health Aide (8:30 AM-5:30 PM 7 days/week) Primary Language: Mexican Review of Systems Review of Systems Constitutional: Denies: see HPI. Exam & Diagnostic Data Last 24 Hrs of Vital Signs/I&O Vital Signs Date Time Temp Pulse Resp B/P B/P Pulse O2 O2 Flow FiO2 Mean Ox Delivery Rate 11/17 2333 98.3 65 18 104/50 97 Room Air 11/17 2202 62 16 112/56 100 Room Air 11/17 2041 67 16 86/43 98 Room Air 11/17 1310 98 Room Air 11/17 1242 98.4 78 18 113/67 98 Room Air Intake & Output 11/17 1600 11/17 0800 11/17 0000 Intake Total 0 Output Total Balance 0 Intake, Oral 0 Patient 120 lb Weight Weight Reported by Patient Measurement Method Physical Exam General Appearance Alert, Oriented X3, Cooperative, Mild Distress Skin lower extremity brown spots -age related Skin Temp/Moisture Exam: Warm/Dry Sepsis Skin Exam (color): Normal for Ethnicity HEENT dry mucous membranes; pupils constricted not signficantly reactive to light Neck Supple Cardiovascular Normal S1, Normal S2 Lungs Clear to Auscultation, Normal Air Movement Abdomen Soft, umbilical hernia that is reproducible, nontender, no change in color Neurological 2/5 right lower extremity weakness; sensation intact 3/5 left lower extremity weakness; sensation intact hyporflexive Decreased range of motion in flexion/extension bilterally Extremities No Cyanosis, No Edema Vascular Normal Pulses Last 24 Hrs of Labs/Jae: Laboratory Tests 11/17/17 1629: Anion Gap 11, Estimated GFR 29 L, BUN/Creatinine Ratio 17.6, Glucose 86, Calcium 8.9, Troponin I 0.01, PT 14.8 H, INR 1.35 H, CBC w Diff NO MAN DIFF REQ, RBC 3.27 L, MCV 85.9, MCH 29.0, MCHC 33.7, RDW 14.9 H, MPV 6.9 L, Gran % 65.4, Lymphocytes % 24.4, Monocytes % 7.2, Eosinophils % 2.6, Basophils % 0.4, Absolute Granulocytes 3.6, Absolute Lymphocytes 1.3, Absolute Monocytes 0.4, Absolute Eosinophils 0.1, Absolute Basophils 0 Assessment/Plan Assessment: Patient is a 82 year old female with PMH significant for BPPV, HTN, ITP, nephrolithiasis with chronic R UPJ obstruction s/p ureteral stent placement and cystoscopy by Dr. Tesfaye, history of RLE DVT with no anticoagulation (lower GI bleed-angioectasia), chronic anemia, history of thyroid CA s/po thyroidectomy, diastolic HF with pulmonary hypertension who came to ED with epistaxis, found to be hypotensive in ED. Lives home alone with aid 9-6. EMERGENCY DEPARTMENT: NS 250 X 1 Vitals: 98.4, 78, 18, 113/67 Labs: 5.4 WBC, Hgb 9.5, Hct: 28.1, Plt: 233 Chemistry: 134 Na, 4.3 K, 101 Cl, 22 CO2, BUN 30, Cr 1.7 INR: 1.35 PROBLEM LIST: 1. Deconditioning 2. Hypotension 3. Chronic Conditions: BPPV, Anemia, Arthritis PLAN: * Admit to general medicine floor * Patient completed 250 cc fluid bolus in ED with improving BP * Continue to monitor pressures - ECHO: diastolic dysfunction and pulmonary HTN 2016 * Hold Tamsulosin * Orthostatic Vital Signs * Continue home meds: meclizine, metoprolol, losartan * PT/OT consultation placed * Repeat CBC/BEP in AM * Pain: Lidocaine, Tylenol, heat therapy * Constipation: Bowel regimen ordered * F/U EKG - patient reported irregular heart beat Code: Full Code DVT PPx: Heparin sc + ALPS Diet: Heart Healthy Diet As Ranked By This Provider Problem List: 1. BPPV 2. STEFANO (acute kidney injury) 3. Anemia Qualifiers Anemia type: unspecified type Qualified Code: D64.9 - Anemia, unspecified 4. History of ITP 5. HTN (hypertension) 6. UPJ obstruction, congenital Core Measures/Misc (11/09) Acute Coronary Syndrome ACS Diagnosis: No Congestive Heart Failure Congestive Heart Failure Diagnosis No Cerebrovascular Accident CVA/TIA Diagnosis: No VTE (View Protocol) VTE Risk Factors Age>40 No Mechanical VTE Prophylaxis d/t N/A MechProphylax Ordered No VTE Pharm Prophylaxis d/t NA PharmProphylax ordered Sepsis (View protocol) Sepsis Present: No If YES complete Sepsis Event Note If YES complete Sepsis Event Note Tiffanie Plascencia MD 11/18/17 0028: Core Measures/Misc (11/09) Sepsis (View protocol) If YES complete Sepsis Event Note If YES complete Sepsis Event Note Resident Review Statement Resident Statement: examined this patient, discussed with financial analyst intern, agreed with financial analyst intern, reviewed EMR data (avail), amended to note Other Findings: Patient is an 82-year-old female with past medical history significant for hypertension, BPPV, asthma, COPD, lower GI bleed, hernia, urinary incontinence, chronic right ureteral obstruction status post stent, osteoarthritis, history of ITP, DVT (not on anticoagulation due to GI bleed and anemia, thyroid cancer status post resection now presenting to the ED with chief complaint of epistaxis. Patient reports that this morning she felt cold and attempted to take her blood sugar levels. Patient reports that she is not a diabetic however was instructed by her primary care physician to monitor her sugars. States that her initial read was 59 however believe this was in here as a repeat immediately after showed a blood sugar of 121. States her sugars normally run around 98-99. Patient states that she was shaking earlier this morning. She then started noticing a nosebleed that started on her left nostril and went to her right. States the bleeding was orangeish red color and lasted a few minutes and resolved spontaneously. Patient was told previously that if she is bleeding from both nostrils she should come for evaluation to the ED. Patient also reports a recent upper respiratory tract illness and states that she was initially started on levofloxacin 500 mg on 11/12 which she took for approximately 4 days however started to experience visual hallucinations and was told by her PCP to stop the antibiotics. Patient reports that the hallucinations have since resolved. Patient in the ED was getting ready to be discharged however upon discharge her blood pressure was noted to be 86/43. Patient also reports that she has had decreased appetite and hasn't generalized weakness over the past few years. Reports that she is no longer able to walk with a cane and relies on a walker also notes that she is no longer able to take the stairs in her house. Patient has a associate director of nursing who sees her from 8 AM to 5 PM. Patient states she requires assistance with transferring. Reports she is not currently having physical therapy however her primary care physician is supposed to be setting this up. Patient reports significant pain and immobility from athritis and due to her vertigo. Patient notes she experiences a spinning sensation when she turns her head to her left which lasts approximately 10 seconds. She is currently on meclizine. Denies chest pain, shortness of breath, fever, abdominal pain, nausea/vomitting, dysuria/hematuria. Reports occasional constipation and incontinence. Denies easy bruising or bleeding elsewhere. No further episodes of epistaxis. Physical Exam and Labs as Above Patient is an 82 y/o female with PMH of arthritis, urinary incontinence, hypertension, BPPV, asthma, COPD, lower GI bleed, hernia, urinary incontinence, chronic right ureteral obstruction status post stent, osteoarthritis, history of ITP, DVT (not on anticoagulation due to GI bleed and anemia, thyroid cancer status post resection presenting initially with epistaxis which resolved spontaneously. Patient has anemia at baseline however H&H is stable. Patient was hypotensive in the ED. Patient's repeat BP after 50 cc of NS went up to 112/56. Of note patient has significant upper and lower extremity weakness without any other focal neurological deficits. Problems: 1. Deconditioning 2. Hypotension 3. Chronic conditions: Arthritis, BPPV, Anemia Plan: Admit to gen med Complete the 250 cc fluid bolus in the ED Continue to monitor bp. Will be cautious with fluids as patient has diastolic dysfunction and severe pulmonary htn seen on ECHO from 2016. Hold Tamsulosin Check orthostatic vitals Continue remaining home meds: meclizine, metoprolol and losartan in AM PT/OT consult placed Repeat CBC and BEP in AM Pain control with lidocaine, heat therapy and tylenol Bowel regimen for constipation EKG for reported irregular heart beat DVT PPx: ALPS, Heparin SQ Diet: Heart healthy Code: Full code Luis VILLAREAL,Tomy 11/18/17 0243: Core Measures/Misc (11/09) Sepsis (View protocol) If YES complete Sepsis Event Note If YES complete Sepsis Event Note Attending MD Review Statement Attending Statement Attending MD Statement: examined this patient, discuss w/resident/PA/CAN RECONDITIONER, agreed w/resident/PA/CAN RECONDITIONER Attending Assessment/Plan: Patient is seen and examined independently by me. Care plan discussed with medical research scientist and/or resident. I agree with the physical exam findings and plan of care as outlined above with the following changes and additions. 82 yo female with history of CKD, HTN, asthma/COPD, renal stone, vertigo, presented with bloody nose which resolved. When she got up to ambulate, she has dizziness, lightheadedness and weakness. No chest pain, SOB or palpitation. BP 86/43. HR 67. Patient also states she has poor appetite at home. She also had a cold like symptoms for 4 days. Her PCP prescribed Levofloxacin on 11/12 for 10 day but she only took for 4 days. She states she had nighttime visual hallucination with "I see pictures on the wall moving" after starting levofloxacin and resolved after stopping antibiotic. Her cold symptoms also resolved. She is also on tamsulosin. In the ED, patient is afebrile. WBC 5.4. H/H 9.5/28.1 (at baseline). BUN/Cr 30/ 1.7 (22/1.5 on 08/24/17). Patient got NS 250 cc IV bolus in the ED and SBP improves to 112 during IVF infusion. Patient is admitted to inpatient to [facility] for hypotension, possible orthostatic from tamsulosin and mild dehydration. Check orthostatic vitals. Hold tamsulosin. IV hydration. Monitor BP. Check EKG. Signed: Tomy Smith MD FACP
[2017-11-17 23:33] VITALS: BP 104/50
[2017-11-18 06:30] VITALS: BP 106/54
--- NOTE | 2017-11-18 07:09 | PN- Housestaff ---
Varun Reece 11/18/17 0709: Subjective Follow-up For: epistaxis Subjective: Pt seen and examined this AM. She was comfortably lying in bed breathing on room air. VSS reviewed, BP maintaining over 100/60 overnight, HR>60. She offered no acute complains. She denied chest pain, lightheadedness, palpitations, abdominal pain, dizziness. Has had no further episodes of epistaxis since admission. Her weakness has improved. Review of Systems Constitutional: Reports: see HPI. Objective Last 24 Hrs of Vital Signs/I&O Vital Signs Date Time Temp Pulse Resp B/P B/P Pulse O2 O2 Flow FiO2 Mean Ox Delivery Rate 11/18 0630 98.0 62 18 106/54 97 Room Air 11/17 2333 98.3 65 18 104/50 97 Room Air 11/17 2315 Room Air 11/17 2202 62 16 112/56 100 Room Air 11/17 2041 67 16 86/43 98 Room Air 11/17 1310 98 Room Air 11/17 1242 98.4 78 18 113/67 98 Room Air Intake & Output 11/18 1600 11/18 0800 11/18 0000 Intake Total 100 Output Total Balance 100 Intake, Oral 100 Patient 125 lb Weight Weight Bed scale Measurement Method Physical Exam General Appearance: Alert, Oriented X3, Cooperative, No Acute Distress HEENT: Atraumatic Neck: Supple Cardiovascular: Regular Rate, Normal S1, Normal S2 Lungs: Clear to Auscultation, Normal Air Movement Abdomen: Normal Bowel Sounds, Soft, No Tenderness, Noted umbilical hernia Neurological: Normal Speech Extremities: No Clubbing, No Cyanosis, No Edema Current Medications: Current Medications Sig/Sonya Start time Last Medication Dose Route Stop Time Status Admin Acetaminophen 650 MG Q6P PRN 11/18 0015 AC PO Acetaminophen 1,000 MG Q6P PRN 11/18 0015 AC IV Heparin Sodium 5,000 UNIT Q8 11/18 06 AC (Porcine) SC Lidocaine 1 PAT Q24H PRN 11/18 0015 AC EXT Losartan Potassium 25 MG DAILY 11/18 899 AC PO Meclizine HCl 25 MG DAILY NEEDED PRN 11/18 0045 AC PO Metoprolol Tartrate 25 MG DAILY 11/18 899 AC PO Polyethylene Glycol 17 GM AT BEDTIME 11/18 2099 AC PO Senna/Docusate Sodium 1 TAB AT BEDTIME 11/18 2099 AC PO Sodium Chloride 250 ML BOLUS ONE 11/17 2099 DC 11/17 IV 11/17 2159 2201 Last 24 Hrs of Lab/Jae Results Last 24 Hrs of Labs/Mics: Laboratory Tests 11/18/17 0655: Anion Gap 11, Estimated GFR 29 L, BUN/Creatinine Ratio 19.4, CBC w Diff Pending , WBC Pending, RBC Pending, Hgb Pending, Hct Pending, MCV Pending, MCH Pending, MCHC Pending, RDW Pending, Plt Count Pending, MPV Pending, Gran % Pending, Lymphocytes % Pending, Monocytes % Pending, Eosinophils % Pending, Basophils % Pending, Absolute Granulocytes Pending, Absolute Lymphocytes Pending, Absolute Monocytes Pending, Absolute Eosinophils Pending, Absolute Basophils Pending 11/17/17 1629: Anion Gap 11, Estimated GFR 29 L, BUN/Creatinine Ratio 17.6, Glucose 86, Calcium 8.9, Troponin I 0.01, PT 14.8 H, INR 1.35 H, CBC w Diff NO MAN DIFF REQ, RBC 3.27 L, MCV 85.9, MCH 29.0, MCHC 33.7, RDW 14.9 H, MPV 6.9 L, Gran % 65.4, Lymphocytes % 24.4, Monocytes % 7.2, Eosinophils % 2.6, Basophils % 0.4, Absolute Granulocytes 3.6, Absolute Lymphocytes 1.3, Absolute Monocytes 0.4, Absolute Eosinophils 0.1, Absolute Basophils 0 Assessment/Plan Assessment: Ms. Carter is a 82 y/o F with PMH significant for BPPV, HTN, ITP, nephrolithiasis with chronic R UPJ obstruction s/p ureteral stent placement and cystoscopy by Dr. Tesfaye, history of RLE DVT with no anticoagulation (lower GI bleed- angioectasia), chronic anemia, history of thyroid CA s/po thyroidectomy, diastolic HF with pulmonary hypertension who came to ED with epistaxis, found to be hypotensive in ED. She was admitted for further management of the following issues: PROBLEM LIST: #Hypotensive episode #Deconditioning #H/o HTN, h/o Anemia, h/o Arthritis #Hypotensive episode BP stable overnight. She got 250 cc fluid bolus in the ED with appropiate response. Orthostatic VS Tamsulosin held Noted EF from echo in 2016: diastolic dysfunction and pulmonary HTN Will assess for infection: panculture, CXR, UA. #Deconditioning Patient has progressively gottten weaker, ambulating with a walker from a cane. She also has chronic anemia which is likely contributing to her status. PT evaluation #H/o HTN, h/o Anemia, h/o Arthritis, H/O BPPV, Will hold BP meds for now until BP is completely stable. Meclizine PRN for vertiginous symptoms FULL CODE DVT PPX: Sq hep, ALPS Problem List: 1. BPPV 2. Anemia 3. STEFANO (acute kidney injury) 4. HTN (hypertension) Pain Ratin Pain Location: n/a Pain Goal: Remain pain free Pain Plan: as indicated Tomorrow's Labs & Rationales: cbc, lft Estefania Nevarez MD 11/18/17 1344: Attending MD Review Statement Attending Statement Attending MD Statement: examined this patient, discuss w/resident/PA/TELESALES PROFESSIONAL, agreed w/resident/PA/TELESALES PROFESSIONAL, reviewed EMR data (avail) Attending Assessment/Plan: Epistaxis last night which has resolved, with hypotension that also resolved with IV fluids. Patient reports rigors last night that felt like she had a 104 fever. She has been afebrile here but given hypotension and rigors, further workup should be done. Plan - Continue on general medicine - CXR - Rapid flu - UA and urine culture - Sputum culture if possible - Repeat WBC and LFTs tomorrow - Continue home medications - DVT PPx
[2017-11-18 08:06] LABS: ABSOLUTE BASOPHIL COUNT 0 /CUMM (0.0-0.2); ABSOLUTE EOSINOPHIL COUNT 0.1 /CUMM (0.0-0.7); ABSOLUTE GRANULOCYTE CT 3.2 /CUMM (1.4-6.5); ABSOLUTE LYMPH COUNT 1.1 /CUMM (1.2-3.4); ABSOLUTE MONOCYTE COUNT 0.4 /CUMM (0.10-0.60); BASOPHIL % 0.6 % (0.0-2.0); EOSINOPHIL % 2.6 % (0-5); HEMATOCRIT 25.7 % (37-47); MEAN CORPUSCULAR HGB 29.4 PG (27.0-31.0); MEAN CORPUSCULAR HGB CONC 34.4 G/DL (33.0-37.0); MEAN CORPUSCULAR VOLUME 85.6 FL (81.0-99.0); MEAN PLATELET VOLUME 7.5 FL (7.4-10.4); RBC DISTRIBUTION WIDTH 14.6 % (11.5-14.5); WHITE BLOOD CELL COUNT 4.8 /CUMM (4.8-10.8)
[2017-11-18 08:58] LABS: PLATELET COUNT 215 /CUMM (130-400)
[2017-11-18 08:59] LABS: GRANULOCYTE % 66.4 % (42.2-75.2)
--- NOTE | 2017-11-18 11:30 | Discharge Summary ---
Visit Information Visit Dates Admission Date: 11/17/17 Discharge Date: 11/20/17 Hospital Course Course Attending Physician: Estefania Nevarez MD Primary Care Physician: Reinaldo Blake MD Hospital Course: Ms. Carter is a 82 y/o F with PMH significant for BPPV, HTN, ITP, nephrolithiasis with chronic R UPJ obstruction s/p ureteral stent placement and cystoscopy by Dr. Tesfaye, history of RLE DVT with no anticoagulation (lower GI bleed- angioectasia), chronic anemia, history of thyroid CA s/po thyroidectomy, diastolic HF with pulmonary hypertension who came to ED with epistaxis, found to be hypotensive in ED. She was admitted for further management of the following issues which are summarized below: PROBLEM LIST: #Hypotensive episode #Deconditioning #H/o HTN, h/o Anemia, h/o Arthritis #STEFANO-on-CKD stage 3b #Hypotensive episode BP has remained stable during the admission. Her tamsulosin and antihypertensive medication were held due to this reason. She was assessed for infection, pancultured. Urinary antigens for both Legionella and Strep pneumo were negative; UA suggestive of infection and she was given a dose of ceftriaxone. She was then transitioned to cephalexin to complete a total of 3 days. While she was admitted, she had one more episode of low volume epistaxis. Her H/H was stable. She was given a nasal spray to maintain a moist oral mucosa. #Deconditioning PT evaluated the patient - she is at her baseline. She however will benefit from home PT for further recommendations based on her environment. No acute intervention in hospital was done. #H/o HTN, h/o Anemia, h/o Arthritis, H/O BPPV, STEFANO-on-CKD stage 3b BP meds held due to episodes of hypotension. Tamsulosin and losartan were stopped; she was instructed to follow up with her PCP within 1 week to discuss this hospital admission and antihypertensive medication changes. She was on Meclizine PRN for vertiginous symptoms. Her creatinine trend: 1.7->1.9->1.6. During her admission, she was a FULL CODE DVT PPX: ALPS, pt refused hep sq Allergies: Coded Allergies: Sulfa (Sulfonamide Antibiotics) (THROMBOCYTOPENIA 12/13/16) Penicillins (Severe, BLEEDING - UNKNOWN PT DOESNT REMEMBER 10/10/15) sulfamethoxazole (From BACTRIM) (Severe, Thrombocytopenia 10/13/15) trimethoprim (From BACTRIM) (Severe, Thrombocytopenia 10/13/15) warfarin (Severe, EXCESSIVE BLEEDING 10/10/15) aspirin (BLEED 05/02/15) Disposition Summary Disposition Principal Diagnosis: UTI Additional Diagnosis: Hypotensive episode Discharge Disposition: home health services Discharge Instructions General Discharge Information Code Status: Full Code Patient's Diet: Reg diet Patient's Activity: As tolerated. Follow-Up Instructions/Appts: Please follow up with your primary care provider regarding this hospital admission within 1 week. Medications at Discharge Discharge Medications: Stop taking the following medications: Tamsulosin HCl (Tamsulosin HCl) 0.4 MG CAP.ER.24H ORAL DAILY Days = 30 Losartan Potassium (Cozaar) 25 MG TABLET ORAL DAILY Continue taking these medications: Meclizine HCl (Meclizine HCl) 25 MG TABLET 1 Tablet ORAL DAILY Comments: Last Taken: 11/19/17 Time: 1345 Metoprolol Tartrate (Metoprolol Tartrate) 25 MG TABLET 1 Tablet ORAL DAILY Qty = 30 Comments: Last Taken: 11/19/1817 Time: 1005 Albuterol Sulfate (Ventolin Hfa) 90 MCG HFA.AER.AD 2 Puff Inhale through mouth EVERY 4-6 HOURS NEEDED as needed for shortness of breath, wheezing Qty = 1 Comments: NOT GIVEN IN HOSPITAL Start taking the following new medications: Cephalexin (Keflex) 500 MG CAPSULE 250 Milligram ORAL TWICE DAILY Qty = 3 No Refills Instructions: Please take one today at 9 pm. Please take tomorrow (11/21) morning and one tomorrow (11/21) evening. Comments: Last Taken:11/20/17 Time:1200 Sennosides/Docusate Sodium (Senna Plus Tablet) 8.6 MG-50 MG TABLET 1 Tablet ORAL AT BEDTIME as needed for CONSTIPATION Qty = 30 No Refills Instructions: Please take if constipated. Sodium Chloride (Saline Nose [place]) 0.65 % SPRAY 1 [place] Both sides of nose EVERY SIX HOURS NEEDED as needed for Dry mucosa Qty = 1 No Refills Instructions: Use as instructed to keep your mucosa moist. Copies To: Lou VILLAREAL,Reinaldo Coyle
[2017-11-18 14:15] VITALS: BP 98/56
--- NOTE | 2017-11-18 18:16 | RADIOLOGY REPORT ---
EXAMINATION: XR PORTABLE CHEST CLINICAL INFORMATION: Shortness of breath. Sputum production COMPARISON: Chest x-ray 10/24/2017 TECHNIQUE: Portable frontal view of the chest was obtained. 5:33 PM FINDINGS: Lungs are clear. No pulmonary vascular congestion. There is no pleural effusion. The heart size is normal. The cardiac and mediastinal contours are normal. There are calcifications of the thoracic aorta. There are multilevel degenerative changes of dorsal spine. IMPRESSION: Unremarkable examination.
[2017-11-18 23:00] VITALS: BP 122/58
[2017-11-19 06:33] VITALS: BP 100/50
--- NOTE | 2017-11-19 06:40 | PN- Housestaff ---
Varun Reece 11/19/17 0640: Subjective Follow-up For: epistaxis Subjective: Patient seen and examined this a.m. She was comfortably laying down on the bed, breathing room air, not in acute distress. BP has been stable, hovering around 100 systolic 50-60 diastolic. She remains afebrile, incontinent, which has made urine sample collection difficult. She offered no acute complaints. She however is apprehensive about the possibility of discharge today. She denied headache, abdominal pain, chest pain, palpitations, lightheadedness, nausea or vomiting. Review of Systems Constitutional: Reports: see HPI. Objective Last 24 Hrs of Vital Signs/I&O Vital Signs Date Time Temp Pulse Resp B/P B/P Pulse O2 O2 Flow FiO2 Mean Ox Delivery Rate 11/19 0633 98.2 62 20 100/50 97 Room Air 11/18 2300 98.2 62 18 122/58 96 11/18 1415 98.3 60 20 98/56 97 11/18 1059 62 106/54 11/18 1050 62 106/54 Intake & Output 11/19 1600 11/19 0800 11/19 0000 Intake Total 200 Output Total Balance 200 Intake, Oral 200 Physical Exam General Appearance: Alert, Oriented X3, Cooperative, No Acute Distress HEENT: Atraumatic Neck: Supple, No JVD Cardiovascular: Regular Rate, Normal S1, Normal S2, No Murmurs Lungs: Clear to Auscultation, Normal Air Movement Abdomen: Normal Bowel Sounds, Soft, No Tenderness, Noted nontender umbilical hernia. Neurological: Normal Speech Extremities: No Edema Current Medications: Current Medications Sig/Sonya Start time Last Medication Dose Route Stop Time Status Admin Acetaminophen 650 MG Q6P PRN 11/18 0015 AC PO Acetaminophen 1,000 MG Q6P PRN 11/18 0015 AC IV Heparin Sodium 5,000 UNIT Q8 11/18 06 AC (Porcine) SC Lidocaine 1 PAT Q24H PRN 11/18 0015 AC EXT Losartan Potassium 25 MG DAILY 11/18 899 AC PO Meclizine HCl 25 MG DAILY NEEDED PRN 11/18 0045 AC 11/18 PO 1050 Metoprolol Tartrate 25 MG DAILY 11/18 09 AC 11/18 PO 1050 Polyethylene Glycol 17 GM AT BEDTIME 11/18 2100 AC PO Senna/Docusate Sodium 1 TAB AT BEDTIME 11/18 2100 AC PO Last 24 Hrs of Lab/Jae Results Last 24 Hrs of Labs/Mics: Laboratory Tests 11/19/17 0625: Anion Gap 8, Estimated GFR 25 L, BUN/Creatinine Ratio 20.5, Total Bilirubin 0.3 , Direct Bilirubin 0.3, AST 18, ALT 19, Alkaline Phosphatase 46, Total Protein 6.0 L, Albumin 2.9 L, CBC w Diff NO MAN DIFF REQ, RBC 3.00 L, MCV 85.9, MCH 29.2, MCHC 34.0, RDW 14.1, MPV 7.1 L, Gran % 60.6, Lymphocytes % 27.1, Monocytes % 8.6, Eosinophils % 3.1, Basophils % 0.6, Absolute Granulocytes 3.0, Absolute Lymphocytes 1.4, Absolute Monocytes 0.4, Absolute Eosinophils 0.2, Absolute Basophils 0 Microbiology 11/18 1336 BLOOD: Blood Culture - RECD 11/18 1207 BLOOD: Blood Culture - RECD 11/18 1133 URINE ROUT: Legionella Antigen - COLB 11/18 1133 URINE ROUT: Streptococcus pneumoniae Antigen (M - COLB 11/18 1133 URINE ROUT: Urine Culture - COLB 11/18 1133 LOWER RESP: Respiratory Culture - COLB 11/18 113 LOWER RESP: Gram Stain - COLB Assessment/Plan Assessment: Ms. Carter is a 82 y/o F with PMH significant for BPPV, HTN, ITP, nephrolithiasis with chronic R UPJ obstruction s/p ureteral stent placement and cystoscopy by Dr. Tesfaye, history of RLE DVT with no anticoagulation (lower GI bleed- angioectasia), chronic anemia, history of thyroid CA s/po thyroidectomy, diastolic HF with pulmonary hypertension who came to ED with epistaxis, found to be hypotensive in ED. 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 Tamsulosin held, antihypertensives held Noted EF from echo in 2016: diastolic dysfunction and pulmonary HTN Will assess for infection: No growth on blood cultures so far. Negative urinary antigens for legionella and strep pneumo. UA showing: WBC, bacteria, positive leukocyte esterase. Will start ceftriaxone 1g qD. #Deconditioning Patient has progressively gottten weaker, ambulating with a walker from a cane. She also has chronic anemia which is likely contributing to her status. PT evaluation - she is at her baseline. She might benefit from home PT for further recommendations based on her environment. No acute intervention in hospital is recommended. #H/o HTN, h/o Anemia, h/o Arthritis, H/O BPPV, STEFANO-on-CKD stage 3b Will hold BP meds for now until BP is completely stable. Meclizine PRN for vertiginous symptoms Will trend Cr, send for serum and urine osm, urine sodium. Cr 1.9, baseline around 1.3-1.4. FULL CODE DVT PPX: Sq hep, ALPS Problem List: 1. Epistaxis 2. Anemia Pain Ratin Pain Location: n/a Pain Goal: Remain pain free Pain Plan: as indicated Tomorrow's Labs & Rationales: cbc, bep Estefania Nevarez MD 11/19/17 0957: Attending MD Review Statement Attending Statement Attending MD Statement: examined this patient, discuss w/resident/PA/WEB PRESS OPERATOR APPRENTICE, agreed w/resident/PA/WEB PRESS OPERATOR APPRENTICE, reviewed EMR data (avail) Attending Assessment/Plan: Epistaxis last night which has resolved, with hypotension that also resolved with IV fluids. Patient reports rigors last night that felt like she had a 104 fever. She has been afebrile here but given hypotension and rigors, further workup should be done. Plan - Continue on general medicine - Send serum and urine osmolality, urine protein/creatinine, urine sodium - CXR negative - Rapid flu negative - UA and urine culture - Sputum culture if possible - Repeat WBC and LFTs tomorrow - Continue home medications - DVT PPx
[2017-11-19 07:58] LABS: ABSOLUTE BASOPHIL COUNT 0 /CUMM (0.0-0.2); ABSOLUTE EOSINOPHIL COUNT 0.2 /CUMM (0.0-0.7); ABSOLUTE LYMPH COUNT 1.4 /CUMM (1.2-3.4); ABSOLUTE MONOCYTE COUNT 0.4 /CUMM (0.10-0.60); BASOPHIL % 0.6 % (0.0-2.0); EOSINOPHIL % 3.1 % (0-5); GRANULOCYTE % 60.6 % (42.2-75.2); HEMATOCRIT 25.8 % (37-47); MEAN CORPUSCULAR HGB 29.2 PG (27.0-31.0); MEAN CORPUSCULAR VOLUME 85.9 FL (81.0-99.0); MEAN PLATELET VOLUME 7.1 FL (7.4-10.4); PLATELET COUNT 209 /CUMM (130-400); RBC DISTRIBUTION WIDTH 14.1 % (11.5-14.5)
[2017-11-19 14:38] VITALS: BP 90/50
[2017-11-19 23:32] VITALS: BP 98/52
[2017-11-20 06:36] VITALS: BP 110/56
--- NOTE | 2017-11-20 06:58 | PN- Housestaff ---
See Addendum Subjective Follow-up For: epistaxis Subjective: Patient seen and examined this a.m. Vital signs reviewed, afebrile; her BP range over the past 24 hours have been 90-110 systolic, 50-58 diastolic. She did have one episode of epistaxis that was witnessed yesterday. Small in volume , some clots visible. There was no large volume bleeding. Resolved on its own by the hour. There were no further episodes during the day. On examination this morning she was alert oriented x3. Pleasant, conversational, comfortably eating breakfast, offering no acute complaints. She has not had a bowel movement yet. She denies abdominal pain, nausea/vomiting, chest pain, palpitations, chills, fever, dysuria. She is stable for discharge with home PT. Review of Systems Constitutional: Reports: see HPI. Objective Last 24 Hrs of Vital Signs/I&O Laboratory Tests 11/20 11/19 0650 1133 Chemistry Sodium (137 - 145 mmol/L) 133 L Potassium (3.5 - 5.1 mmol/L) 5.0 Chloride (98 - 107 mmol/L) 102 Carbon Dioxide (22 - 30 mmol/L) 19 L Anion Gap (5 - 16) 12 BUN (7 - 17 mg/dL) 35 H Creatinine (0.5 - 1.0 mg/dL) 1.6 H Estimated GFR (>60 ml/min) 31 L BUN/Creatinine Ratio (7 - 25 %) 21.9 Hematology CBC w Diff NO MAN DIFF REQ WBC (4.8 - 10.8 /CUMM) 5.6 RBC (4.20 - 5.40 /CUMM) 2.95 L Hgb (12.0 - 16.0 G/DL) 8.5 L Hct (37 - 47 %) 25.2 L MCV (81.0 - 99.0 FL) 85.6 MCH (27.0 - 31.0 PG) 28.8 MCHC (33.0 - 37.0 G/DL) 33.7 RDW (11.5 - 14.5 %) 14.2 Plt Count (130 - 400 /CUMM) 229 MPV (7.4 - 10.4 FL) 7.0 L Gran % (42.2 - 75.2 %) 61.1 Lymphocytes % (20.5 - 51.1 %) 27.4 Monocytes % (1.7 - 9.3 %) 7.1 Eosinophils % (0 - 5 %) 3.8 Basophils % (0.0 - 2.0 %) 0.6 Absolute Granulocytes (1.4 - 6.5 /CUMM) 3.4 Absolute Lymphocytes (1.2 - 3.4 /CUMM) 1.5 Absolute Monocytes (0.10 - 0.60 /CUMM) 0.4 Absolute Eosinophils (0.0 - 0.7 /CUMM) 0.2 Absolute Basophils (0.0 - 0.2 /CUMM) 0 Urines Urine Color (YEL,AMB,STR) YEL Urine Clarity (CLEAR) CLDY H Urine pH (5.0 - 8.0) 6.0 Ur Specific Ernest (1.001 - 1.035) 1.020 Urine Protein (NEG,<30 MG/DL) TRACE H Urine Ketones (NEG) NEG Urine Nitrite (NEG) NEG Urine Bilirubin (NEG) NEG Urine Urobilinogen (0.1 - 1.0 EU/dl) 0.2 Ur Leukocyte Esterase (NEG) LARGE H Ur Microscopic SEDIMENT EXAMINED Urine RBC (0 - 5 /HPF) 1-3 Urine WBC (0 - 2 /HPF) PACKD H Ur Epithelial Cells (NONE,FEW) FEW Urine Bacteria (NEG/NONE) MANY H Urine Hemoglobin (NEG) MOD H Urine Glucose (N MG/DL) NEG Vital Signs Date Time Temp Pulse Resp B/P B/P Pulse O2 O2 Flow FiO2 Mean Ox Delivery Rate 11/20 0636 98.1 56 16 110/56 97 Room Air 11/19 2332 99.9 54 16 98/52 97 11/19 1438 97.8 55 18 90/50 97 Room Air 11/19 1005 66 110/50 11/19 1005 66 110/50 Intake & Output 11/20 1600 11/20 0800 11/20 0000 Intake Total 200 240 Output Total Balance 200 240 Intake, Oral 200 240 Physical Exam General Appearance: Alert, Oriented X3, Cooperative, No Acute Distress HEENT: Atraumatic Neck: Supple Cardiovascular: Regular Rate, Normal S1, Normal S2, No Murmurs Lungs: Clear to Auscultation Abdomen: Normal Bowel Sounds, Soft, No Tenderness Neurological: Normal Speech Current Medications: Current Medications Sig/Sonya Start time Last Medication Dose Route Stop Time Status Admin Acetaminophen 650 MG Q6P PRN 11/18 0015 AC PO Acetaminophen 1,000 MG Q6P PRN 11/18 0015 AC IV Ceftriaxone Sodium 1,000 MG 1900 11/19 1900 AC 11/19 IV 2219 Heparin Sodium 5,000 UNIT Q8 11/18 0600 AC (Porcine) SC Lidocaine 1 PAT Q24H PRN 11/18 001 AC EXT Losartan Potassium 25 MG DAILY 11/18 899 AC 11/19 PO 1005 Meclizine HCl 25 MG DAILY NEEDED PRN 11/18 0045 AC 11/19 PO 1345 Metoprolol Tartrate 25 MG DAILY 11/18 899 AC 11/19 PO 1005 Polyethylene Glycol 17 GM AT BEDTIME 11/18 2099 AC PO Senna/Docusate Sodium 1 TAB AT BEDTIME 11/18 2099 AC 11/19 PO 2221 Last 24 Hrs of Lab/Jae Results Last 24 Hrs of Labs/Mics: Laboratory Tests 11/20/17 0650: Anion Gap 12, Estimated GFR 31 L, BUN/Creatinine Ratio 21.9, CBC w Diff NO MAN DIFF REQ, RBC 2.95 L, MCV 85.6, MCH 28.8, MCHC 33.7, RDW 14.2, MPV 7.0 L, Gran % 61.1, Lymphocytes % 27.4, Monocytes % 7.1, Eosinophils % 3.8, Basophils % 0.6, Absolute Granulocytes 3.4, Absolute Lymphocytes 1.5, Absolute Monocytes 0.4, Absolute Eosinophils 0.2, Absolute Basophils 0 11/19/17 1133: Urine Color YEL, Urine Clarity CLDY H, Urine pH 6.0, Ur Specific Ernest 1.020, Urine Protein TRACE H, Urine Ketones NEG, Urine Nitrite NEG, Urine Bilirubin NEG, Urine Urobilinogen 0.2, Ur Leukocyte Esterase LARGE H, Ur Microscopic SEDIMENT EXAMINED, Urine RBC 1-3, Urine WBC PACKD H, Ur Epithelial Cells FEW, Urine Bacteria MANY H, Urine Hemoglobin MOD H, Urine Glucose NEG 11/19/17954: Urine Osmolality 358, Ur Random Creatinine 47.5, U Random Total Protein 41 H, Ur Random Sodium 80, Ur Random Potassium 21.0, Protein/Creatinin Ratio 0.8 H, Fraction Sodium Excret 2.4 H Microbiology 11/19 954 URINE ROUT: Legionella Antigen - RES 11/19 954 URINE ROUT: Streptococcus pneumoniae Antigen (M - RES 11/19 0914 URINE ROUT: Urine Culture - RES Assessment/Plan Assessment: Ms. Carter is a 82 y/o F with PMH significant for BPPV, HTN, ITP, nephrolithiasis with chronic R UPJ obstruction s/p ureteral stent placement and cystoscopy by Dr. Tesfaye, history of RLE DVT with no anticoagulation (lower GI bleed- angioectasia), chronic anemia, history of thyroid CA s/po thyroidectomy, diastolic HF with pulmonary hypertension who came to ED with epistaxis, found to be hypotensive in ED. 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 Tamsulosin held, antihypertensives held Noted EF from echo in 2016: diastolic dysfunction and pulmonary HTN Will assess for infection: No growth on blood cultures so far. Negative urinary antigens for legionella and strep pneumo. UA showing: WBC, bacteria, positive leukocyte esterase. Will start ceftriaxone 1g qD, will transition to PO cephalexin on discharge. #Deconditioning Patient has progressively gottten weaker, ambulating with a walker from a cane. She also has chronic anemia which is likely contributing to her status. PT evaluation - she is at her baseline. She might benefit from home PT for further recommendations based on her environment. No acute intervention in hospital is recommended; she is stable for discharge. #H/o HTN, h/o Anemia, h/o Arthritis, H/O BPPV, STEFANO-on-CKD stage 3b Will hold BP meds for now until BP is completely stable. Will discharge without losartan and tamsulosine. Meclizine PRN for vertiginous symptoms Cr trend 1.7->1.9->1.6. Noted high FeNA. Baseline Cr around 1.3-1.4. FULL CODE DVT PPX: Sq hep, ALPS Problem List: 1. Epistaxis 2. Renal insufficiency 3. Anemia Pain Ratin Pain Location: n/a Pain Goal: Remain pain free Pain Plan: as indicated Tomorrow's Labs & Rationales: n/a
[2017-11-20 08:22] LABS: ABSOLUTE BASOPHIL COUNT 0 /CUMM (0.0-0.2); ABSOLUTE EOSINOPHIL COUNT 0.2 /CUMM (0.0-0.7); ABSOLUTE GRANULOCYTE CT 3.4 /CUMM (1.4-6.5); ABSOLUTE LYMPH COUNT 1.5 /CUMM (1.2-3.4); ABSOLUTE MONOCYTE COUNT 0.4 /CUMM (0.10-0.60); BASOPHIL % 0.6 % (0.0-2.0); EOSINOPHIL % 3.8 % (0-5); GRANULOCYTE % 61.1 % (42.2-75.2); HEMATOCRIT 25.2 % (37-47); MEAN CORPUSCULAR HGB 28.8 PG (27.0-31.0); MEAN CORPUSCULAR HGB CONC 33.7 G/DL (33.0-37.0); MEAN CORPUSCULAR VOLUME 85.6 FL (81.0-99.0); PLATELET COUNT 229 /CUMM (130-400); RBC DISTRIBUTION WIDTH 14.2 % (11.5-14.5); RED BLOOD CELL CT 2.95 /CUMM (4.20-5.40); WHITE BLOOD CELL COUNT 5.6 /CUMM (4.8-10.8)
[2017-11-20 09:06] VITALS: BP 114/48
--- NOTE | 2017-11-20 09:20 | Patient Discharge Instructions ---
Discharge Instructions General Discharge Information You were seen/treated for: Epistaxis UTI Special Instructions: You were discharged on antibiotics. Please take one today evening. Please take one in the morning of 11/21, and one in the evening of 11/21. Please follow up with your PCP within 1 week of discharge to discuss this hospital admission and adjustment of your blood pressure medications. Please use the nasal spray to ensure your nose stays moist. Diet Continue normal diet: Yes Acute Coronary Syndrome Inclusion Criteria At DC or during hospital stay patient has or had the following: ACS DIAGNOSIS No Discharge Core Measures Meds if any: Prescribed or Continued at Discharge Meds if any: NOT Prescribed or Continued at Discharge Congestive Heart Failure Inclusion Criteria At DC or during hospital stay patient has or had the following: CHF DIAGNOSIS No Discharge Core Measures Meds if any: Prescribed or Continued at Discharge Meds if any: NOT Prescribed or Continued at Discharge Cerebrovascular accident Inclusion Criteria At DC or during hospital stay patient has or had the following: CVA/TIA Diagnosis No Discharge Core Measures Meds if any: Prescribed or Continued at Discharge Meds if any: NOT Prescribed or Continued at Discharge Venous thromboembolism Inclusion Criteria VTE Diagnosis No VTE Type NONE VTE Confirmed by (Test) NONE Discharge Core Measures - Per Current guidelines, there needs to be overlap - treatment for the first 5 days of Warfarin therapy. - If discharged on Warfarin prior to 5 days of - overlap therapy, the patient will need to be - assessed for post discharge needs including - *Post discharge parental anticoagulation - *Warfarin and/or parental anticoagulation education - *Follow up date to check INR post discharge At least 5 days overlap therapy as Inpatient No Meds if any: Prescribed or Continued at Discharge Note: Overlap Therapy is Warfarin and Anticoagulant Meds if any: NOT Prescribed or Continued at Discharge
[2017-11-20] MEDS ORDERED: SENNA PLUS TAB1 EACH PO ×3 (10:36→14:04)
[2017-11-20] MEDS ORDERED: SALINE NOSE SPR45 ML NASB ×2 (10:37→14:04)
[2017-11-20] MEDS ORDERED: KEFLEX500 M1 PO ×4 (11:06→14:04)
== END 2017-11-20 17:27 | disposition home health service (06) | DRG 315 ==
LOC: ERH 12:37 → 1NO 21:02 → ERHI 21:02 → ENRESERV 22:16 → ENTRNSPT 22:48 → EDTRNSPTSTS 22:51 → 1NO 22:57 → CMPTRNSPT 23:17 → 1NO 11-18 08:00 → ENPENDDIS 11-20 11:39 → 1NO 11-20 17:27
PROVIDERS: Emergency Medicine; Student in an Organized Health Care Education/Training Program
DX: I95.9 Hypotension, unspecified (principal); N17.9 Acute kidney failure, unspecified; D69.3 Immune thrombocytopenic purpura; I50.30 Unspecified diastolic (congestive) heart failure; I13.0 Hypertensive heart and chronic kidney disease with heart failure and stage 1 through stage 4 chronic kidney disease, or unspecified chronic kidney disease; E86.0 Dehydration; J45.909 Unspecified asthma, uncomplicated; Z85.850 Personal history of malignant neoplasm of thyroid; D64.9 Anemia, unspecified; H81.10 Benign paroxysmal vertigo, unspecified ear; Z86.718 Personal history of other venous thrombosis and embolism; M19.90 Unspecified osteoarthritis, unspecified site; I27.20 Pulmonary hypertension, unspecified; J44.9 Chronic obstructive pulmonary disease, unspecified; R53.1 Weakness; R26.2 Difficulty in walking, not elsewhere classified; R04.0 Epistaxis; N18.3 Chronic kidney disease, stage 3 (moderate); Z96.0 Presence of urogenital implants; Z88.6 Allergy status to analgesic agent; Z88.1 Allergy status to other antibiotic agents; Z88.0 Allergy status to penicillin; Z88.2 Allergy status to sulfonamides; Z79.51 Long term (current) use of inhaled steroids; E89.0 Postprocedural hypothyroidism
CPT/HCPCS: 1NP; 84133; 84300; 36415; 36592; 71045; 81001; 82436; 82570; 87040; 87070; 87086; 87449; 87450; 93005; 93010; 97161-GP; 97530-GO; J0131; J0696; J1644; J7040